=== PATIENT | male | born 1945 | race Caucasian/White ===

== ENCOUNTER → 2018-04-03 10:11 | Outpatient (CLI) | payer MEDICARE, SELFPAY ==
[2018-04-03 12:31] LABS: ALB/GLOB Ratio 1.1 RATIO (0.9-2.4); AST(SGOT) 27 U/L (15-37); Alanine Aminotransfer ALT/SGPT 47 U/L (16-61); Alkaline Phosphatase 78 U/L (45-117); Anion Gap 7 (5-15); BUN 11 mg/dL (7-18); BUN/Creat Ratio 9.8 RATIO (10-20); Calcium,Total 8.5 mg/dL (8.5-10.1); Chloride 107 mmol/L (98-107); Cholesterol 136 mg/dL (200); Creatinine, Serum 1.12 mg/dL (0.70-1.30); EST Glomerular Filtration Rate 69 mL/min (>60); Est Glom Filt Rate - Afr Amer 83 mL/min (>60); Globulin 3.6 g/dL (2.2-4.2); Glucose 99 mg/dL (74-106); High Density Lipoprotein 37 mg/dL; PSA,Total - Annual Screen 1.35 ng/mL (0.00-4.00); Potassium 4.5 mmol/L (3.5-5.1); Protein, Total 7.6 g/dL (6.4-8.2); Sodium Level 141 mmol/L (136-145); Triglycerides 154 mg/dL; Very Low Density Lipoprotein 31 mg/dL (5-40)
== END ==
PROVIDERS: Family Provider Family Medicine; PCP Family Medicine; Visit Provider Family Medicine
DX: R73.01 Impaired fasting glucose (principal); M17.10 Unilateral primary osteoarthritis, unspecified knee; I10 Essential (primary) hypertension; Z12.5 Encounter for screening for malignant neoplasm of prostate
CPT/HCPCS: 36415; 80053; 80061; 84153; G0103

== ENCOUNTER → 2019-04-06 | Outpatient (CLI) | payer MEDICARE, SELFPAY ==
[2019-04-06 10:41] LABS: ALB/GLOB Ratio 1.3 RATIO (0.9-2.4); AST(SGOT) 20 U/L (15-37); Alanine Aminotransfer ALT/SGPT 28 U/L (16-61); Alkaline Phosphatase 100 U/L (45-117); Anion Gap 7 (5-15); BUN 12 mg/dL (7-18); BUN/Creat Ratio 11.7 RATIO (10-20); Calcium,Total 8.7 mg/dL (8.5-10.1); Chloride 106 mmol/L (98-107); Cholesterol 133 mg/dL (200); Creatinine, Serum 1.03 mg/dL (0.70-1.30); EST Glomerular Filtration Rate 75 mL/min (>60); Est Glom Filt Rate - Afr Amer 91 mL/min (>60); GGTP 29 U/L (15-85); Globulin 3.1 g/dL (2.2-4.2); Glucose 94 mg/dL (74-106); High Density Lipoprotein 34 mg/dL; PSA,Total - Annual Screen 1.38 ng/mL (0.00-4.00); Potassium 3.7 mmol/L (3.5-5.1); Protein, Total 7.1 g/dL (6.4-8.2); Sodium Level 142 mmol/L (136-145); Triglycerides 132 mg/dL; Very Low Density Lipoprotein 26 mg/dL (5-40)
== END | disposition home or self-care (01) ==
PROVIDERS: Family Provider Family Medicine; PCP Family Medicine; Referring Provider Family Medicine; Visit Provider Family Medicine
DX: I10 Essential (primary) hypertension (principal); R79.89 Other specified abnormal findings of blood chemistry; N40.1 Benign prostatic hyperplasia with lower urinary tract symptoms; E78.00 Pure hypercholesterolemia, unspecified; Z12.5 Encounter for screening for malignant neoplasm of prostate
CPT/HCPCS: 36415; 80053; 80061; 82977; 84153; G0103

== ENCOUNTER → 2019-05-04 | Outpatient (CLI) | payer MEDICARE, SELFPAY ==
[2017-12-16 19:59] VITALS: BMI 34.2
== END | disposition home or self-care (01) ==
LOC: LABSPEC 14:07
PROVIDERS: Family Provider Family Medicine; PCP Family Medicine; Referring Provider Family Medicine; Visit Provider Family Medicine
DX: L72.9 Follicular cyst of the skin and subcutaneous tissue, unspecified (principal)
CPT/HCPCS: 87070; 87205

== ENCOUNTER → 2019-05-25 | Outpatient (CLI) | payer MEDICARE, SELFPAY ==
--- NOTE | 2019-05-25 11:20 | COLBX_PTH ---
PATIENT: STEVE JUAN III LOC: [facility] U#:[id number] AGE/SX: 74/M ROOM: RE05/25/[address]: Dr. Jean Lay MD : [id number] BED: DIS: 05/25/2019 SPEC #: [id number] RECD: 05/25/19 15:26 STATUS: JEFFREY RAMONITA #: [id number] AYANNA: 05/25/19 11:[address]: Jean Lay DEPT: SURGICAL PATHOLOGY RECD BY: Brooke Valdez ENTERED: 05/28/19 14:43 SP TYPE: COLON BX HEATHER DR: Dr. Omar Ace MD [facility] Tissues: A - Right colon B - Left colon Procedures: Surgery Specimen Level IV HEADER OPERATION: Colonoscopy with biopsies PRE-OP DIAGNOSIS: High risk screening / polyp TISSUE SUBMITTED: A - Right colon, rule out adenoma, B - Left colon, rule out adenoma MICROSCOPIC DIAGNOSIS A. Right colon, biopsy: Fragments of hyperplastic polyp. B. Left colon, biopsy: A fragment of colonic mucosa, no pathologic diagnosis. ALPESH:gi 05/29/19 MICROSCOPIC DESCRIPTION Slides are reviewed. GROSS DESCRIPTION A - Received in fixative is one container labeled with the patient's name and designated right colon. The specimen consists of multiple irregular fragments of light stone soft tissue that in aggregate measure 1 x 1 x 0.1 cm. The specimen is totally submitted in one cassette. B - Received in fixative is one container labeled with the patient's name and designated left colon. The specimen consists of one irregular fragment of light stone soft tissue that measures 0.3 x 0.1 x 0.1 cm. The specimen is totally submitted in one cassette. / ALPESH:gi 05/28/19 TC:1 CPT: 05573 x2
== END | disposition home or self-care (01) ==
LOC: LABSPEC 16:27
PROVIDERS: Family Provider Family Medicine; PCP Family Medicine; Referring Provider Internal Medicine Gastroenterology; Visit Provider Internal Medicine Gastroenterology
DX: Z12.11 Encounter for screening for malignant neoplasm of colon (principal); K63.5 Polyp of colon
CPT/HCPCS: 88305

== ENCOUNTER → 2019-09-11 11:59 | Outpatient (CLI) | payer MEDICARE, SELFPAY ==
[2017-12-16 19:59] VITALS: BMI 34.2
--- NOTE | 2019-09-11 12:02 | RAD_ITS ---
STUDY: X-RAY - ABDOMEN/PELVIS REASON FOR EXAM: Male, 74 years old. Constipation TECHNIQUE: AP supine and upright views of the abdomen and pelvis. COMPARISON: None. FINDINGS: Normal visualized lung bases. There is an unremarkable bowel gas pattern. There is no demonstrated free abdominal air. There are 3 radiopacities measuring up to 7 mm overlying the left renal silhouette consistent with nephrolithiasis. There is a small calcification overlying the spleen also which could be consistent with a calcified splenic granuloma. Normal soft tissue structures. There are diffuse degenerative changes of the visualized thoracolumbar spine. RAD/Abd Inc Decub and/or Erect IMPRESSION: Probable left nephrolithiasis. Calcified splenic granuloma. Diffuse degenerative changes of the visualized thoracolumbar spine. The bowel gas pattern is unremarkable. There is an average amount of colonic stool. Electronically Signed: Arya Leyva MD at 22:04 EDT , Service support ,
== END ==
PROVIDERS: Family Provider Family Medicine; PCP Family Medicine; Referring Provider Family Medicine; Visit Provider Family Medicine
DX: K59.00 Constipation, unspecified (principal)
CPT/HCPCS: 74019

== ENCOUNTER 2019-10-13 09:17 | Emergency (ER) | payer MEDICARE, SELFPAY ==
[2019-10-13 09:18] VITALS: BP 162/91; PULSE 88; RESP 18; TEMP 36.6; O2SAT 97; BMI 33.2
--- NOTE | 2019-10-13 09:27 | ED.DCSUM_ITS ---
History of Present Illness Chief Complaint: Back Informant: Patient, Significant Other Onset: Days - Approximately 8 days ago, October 05 Context: Sudden Onset Injury: - - Patient denies history of injury Timing: Continuous Quality: Dull, Aching Location: Lumbar Current Severity: Mild Maximum Severity: Moderate Worsened by: improves with: Movement, Bending, Lifting Relieved by: Nothing, - - Is taken Tylenol, ibuprofen and Aleve with no improvement. Associated Symptoms: Radiation to Left Leg - Complains of pain from the left greater trochanteric region to the superior aspect of the left patella, - - His bowel or bladder symptoms. He denies saddle paresthesia or anesthesia. He denies foot drop. He denies buckling of his knees going up or down the 2 steps at his residence. Narrative: Is a 74-year-old male with history of back problems since freshman year of high school. He presents with acute exacerbation of his chronic back pain that started 8 days ago. He has no neurologic symptoms. His pain is not in a radicular distribution. He denies fever, chills night sweats. There is no history of trauma. He has no GI symptoms. Prior similar symptoms: Yes Recent Illness/Hospitalization: Yes - Past Medical History (1) History of hypertension Status: Acute (2) History of hypercholesterolemia Status: Acute Past Medical History - Allergies and Home Meds Allergies/Adverse Reactions: Allergies Penicillins Allergy (Verified 10/13/19 09:22) Hives Primary Care Physician: Maurizio Ace MD [Primary Care Provider] - Prior records reviewed: Yes Surgical History: noncontributory Lives: Spouse/ Significant Other Smoking Status: Former smoker Alcohol: Rare Drugs: None Review of Systems General: Denies: Chills, Fever, Malaise, Subjective, Sweats, Weight loss, - ENT: Denies: Rhinorrhea, Sore throat Cardiovascular: Denies: Chest pain, Palpitations Respiratory: Denies: Dyspnea, Cough, Dyspnea on exertion Gastrointestinal: Denies: Abdominal pain, Nausea, Vomiting, Diarrhea, Constipation, Melena, Hematochezia, -, - Genitourinary: Denies: Dysuria, Hematuria, Frequency Musculoskeletal: Reports: Back pain, Extremity Pain. Denies: Myalgias, Arthralgias, Neck pain, Swelling Skin: Denies: Rash, Wounds Neurological: Denies: Weakness, Parasthesia, Numbness Hematologic: Denies: Easy bruising, Easy bleeding Physical Exam Vital Signs/Narrative: Vital Signs Temp Pulse Resp BP Pulse Ox 10/13/19 09:18 97.9 F 88 18 162/91 H 97 Inital Vital Signs reviewed: Yes General: Well nourished, Well developed Head: Normocephalic, Atraumatic Eyes: - - Enucleation of the right eye. No abnormality noted left eye. ENT: Moist mucous membranes, No rhinorrhea Neck: Supple, Nontender, No lymphadenopathy, No JVD Cardiovascular: Regular rate, Regular rhythm, No murmurs, Normal S1, Normal S2 Respiratory: No distress, CTA bilaterally, Chest nontender Abdomen: Soft, Nontender, Nondistended, Normal bowel sounds, No masses. Negative for: Hepatomegaly, Splenomegaly, Mass, Pulsatile mass Rectal: Deferred, - - Have normal perianal sensation. Extremeties: Nontender, No edema, Strong Pulses, Symmetric, - - DP and PT pulses are palpable bilaterally Skin: Normal color, No rash, No Trauma. Negative for: Cyanosis, Diaphoresis, Jaundice Neuro: Alert, Oriented, Normal Strength, Normal Sensation, Normal DTR, Normal Gait, Normal Reflexes - DTR 2+ patella and ankle and symmetric, - - 5 strength with plantar dorsiflexion of the foot. EHL is intact. Straight leg test is negative right and left. Femoral stretch test is negative. Reflexes: Right Patellar, Right Achilles, Left Patellar, Left Achilles. Negative for: Right Clonus, Right Babinski, Left Clonus, Left Babinski Psychological: Normal affect, Normal Mood Diagnostic/Tx/Re-eval - Medical Decision Making She has reproducible low back pain with a normal exam and unremarkable history. Since patient has taken acetaminophen, ibuprofen as well as Naprosyn with no relief after 8 days he was given a short course of opiate analgesia. ED Disposition - Plan for ED Patient: Disposition: Home or Assisted Living Diagnosis: Back pain without radiculopathy Instructions: BACK PAIN (Acute or Chronic) Prescriptions: Hydrocodone Bitart/Apap 5-325 [[place] 5MG-325MG] 1 tab PO Q6H PRN PRN 3 Days #10 tab PRN Reason: Pain Prescription Printed Referrals: Maurizio Ace MD [Primary Care Provider] - 3-5 Days if not improving
[2019-10-13] MEDS: HYDROcodone Bitartrate/Apap 5/325 Tablet PO (09:52)
[2019-10-13 09:55] VITALS: BP 147/75; PULSE 89; RESP 18
== END 2019-10-13 09:56 | disposition home or self-care (01) ==
PROVIDERS: Emergency Provider Emergency Medicine; Family Provider Family Medicine; PCP Family Medicine
DX: M54.5 Low back pain (principal); G89.29 Other chronic pain; I10 Essential (primary) hypertension; E78.00 Pure hypercholesterolemia, unspecified; Z79.82 Long term (current) use of aspirin; Z79.899 Other long term (current) drug therapy; Z87.891 Personal history of nicotine dependence
CPT/HCPCS: 99283

== ENCOUNTER 2019-10-16 06:31 | Observation (INO) | payer MEDICARE, SELFPAY ==
[2019-10-16] VITALS (7 sets, daily range): BP systolic 127–159; BP diastolic 69–89; PULSE 67–80; RESP 16–18; TEMP 36.7–37.3; O2SAT 96–99; BMI 30.7; BMI 30.8
--- NOTE | 2019-10-16 06:39 | CT_ITS ---
STUDY: CT ABDOMEN AND PELVIS WITHOUT CONTRAST REASON FOR EXAM: Male, 74 years old. Pain in the back, as well as the left leg and hip. No known injury. Hypertension. RADIATION DOSAGE (If Supplied By Facility): CTDIvol = ( 13.46 ) mGy, DLP = ( 726.55 ) mGycm TECHNIQUE: Transaxial images were obtained from the dome of the diaphragm to the symphysis pubis without oral contrast, and without intravenous contrast. Sagittal and coronal images were reconstructed. Individualized dose optimization techniques were used for this CT. COMPARISON: X-ray abdominal series 09/11/2019. FINDINGS: There is mild atelectasis and/or fibrosis in the visualized lung bases. The visualized portions of the heart are within normal limits. There are coronary artery calcifications. Normal liver. Normal gallbladder and extrahepatic biliary system. There is a calcified granuloma in the spleen.. Normal pancreas. Normal bilateral adrenal glands. There is a small right renal cyst. There is no demonstrated right urinary calculus or hydronephrosis. There is a small left renal cyst. There are 1.4 cm and 9 mm nonobstructive left lower pole renal calculi. There is no demonstrated ureteral calculus or hydronephrosis. Normal visualized stomach. There is a 3 cm diverticulum of the duodenal sweep. Otherwise normal small intestine. There are multiple colonic diverticula consistent with diverticulosis. The appendix is visualized on axial images 88-99 and it appears normal. There is mild atherosclerotic calcification of the abdominal aorta, without a demonstrated aneurysm. Normal inferior vena cava. Normal retroperitoneum. Normal urinary bladder. Limited views of the scrotum demonstrated a moderately large left hydrocele. There is a small umbilical hernia which contains fat but no bowel. There are diffuse degenerative changes of the visualized lumbar spine. There is mild to moderate degenerative arthrosis of the hips bilaterally. CT/Abdomen/Pelvis without Cont IMPRESSION: Colonic diverticulosis, without evidence for acute diverticulitis. Nonobstructive left renal calculi. Small bilateral renal cysts. No demonstrated ureteral calculi or hydronephrosis. Atherosclerosis. Incidental finding of a moderately large left hydrocele. No evidence for acute pathology. Degenerative changes in the lumbar spine and bilateral hips. No evidence for appendicitis. No evidence for bowel obstruction or ileus. Electronically Signed: Parish Hoyos MD at 7:34 EST , Service support ,
--- NOTE | 2019-10-16 06:40 | ED.VIS.GEN ---
History of Present Illness Informant: Patient Onset: Days Context: Gradual Onset Timing: Intermittent Current Severity: Moderate Maximum Severity: Moderate Narrative: The patient is a 74-year-old male with history of hypertension and hyperlipidemia who presents to the emergency department with left low back pain that radiates to his left leg. The patient was seen here 3 days ago. At that time, he was diagnosed with musculoskeletal back pain. He was given a prescription for Percocet. He states he is been taking it with no improvement. He said the point that his pain is rather significant and he is having a difficult time walking. He states that he struggled with constipation, but has for a while. He denies any numbness in his groin. He denies any fevers or chills. He denies any new trauma. He is never had surgery on his back in the past. Prior similar symptoms: Yes Recent Illness/Hospitalization: No <Tru Poon - Last Filed: 10/16/19 06:40> <Zen Stewart - Last Filed: 10/16/19 10:41> Chief Complaint: Back Past Medical History Prior records reviewed: Yes Past Medical History: - - Hypertension, hyperlipidemia Surgical History: noncontributory Smoking Status: Former smoker <Tru Poon - Last Filed: 10/16/19 06:40> <Zen Stewart - Last Filed: 10/16/19 10:41> - Allergies and Home Meds Allergies/Adverse Reactions: Allergies Penicillins Allergy (Verified 10/13/19 09:22) Hives Primary Care Physician: Maurizio Ace MD [Primary Care Provider] - Review of Systems General: Denies: Chills, Fever, Sweats Eyes: Denies: Visual changes - bilaterally, Diplopia ENT: Denies: Rhinorrhea, Sore throat Cardiovascular: Denies: Chest pain, Palpitations Respiratory: Denies: Dyspnea, Cough, Dyspnea on exertion Gastrointestinal: Denies: Abdominal pain, Nausea, Vomiting, Diarrhea, Melena, Hematochezia Genitourinary: Denies: Dysuria, Hematuria, Frequency Musculoskeletal: Reports: Back pain. Denies: Extremity Pain Skin: Denies: Rash, Wounds Neurological: Denies: Headache, Weakness, Numbness <Tru Poon - Last Filed: 10/16/19 06:40> Physical Exam Vital Signs/Narrative: Vital Signs Temp Pulse Resp BP Pulse Ox 10/16/19 06:32 98.1 F 73 18 159/89 H 97 Inital Vital Signs reviewed: Yes General: Well nourished, Well developed, No Acute Distress Head: Normocephalic, Atraumatic Eyes: Perrl, EOMI ENT: Moist mucous membranes, No rhinorrhea Neck: Supple, Nontender Cardiovascular: Regular rate, Regular rhythm, No murmurs Respiratory: No distress, CTA bilaterally, Chest nontender Abdomen: Soft, Nontender, Nondistended, Normal bowel sounds Back: Nontender, Normal Inspection Extremities: Nontender, No edema Skin: Normal color, No rash Neurological: Alert, Oriented x3, Cranial nerves II-XII grossly intact, Normal Strength, Normal Sensation, - - 2+ symmetric lower extremity pulses. Normal reflexes. Straight leg positive for pain and paresthesia. Psychological: Normal affect, Normal Mood <Tru Poon - Last Filed: 10/16/19 06:40> Vital Signs/Narrative: Vital Signs Temp Pulse Resp BP Pulse Ox 10/16/19 06:32 98.1 F 73 18 159/89 H 97 <Zen Stewart - Last Filed: 10/16/19 10:41> Diagnostic/Tx/Re-eval - Medical Decision Making The patient symptoms do seem most consistent with sciatica. He has no red flag symptoms. My concern is that given his age and medical history, I do want to rule out aortic aneurysm. The patient does have a difficult time walking around because of his pain. He is been on oral analgesics. Patient will undergo metabolic work-up, imaging, and be reevaluated. Impression 1. Acute left back pain with radiculopathy <Tru Poon - Last Filed: 10/16/19 06:40> - Medical Decision Making Seen by me. I evaluated him, most of his pain is paraspinal. He has no red flags on history and normal exam by me, he has negative straight leg test, he has no tenderness in his groin or hip region. He has equal reflexes bilaterally normal plantar flexion and dorsiflexion of great toes. However when I try to ambulate him he cannot, I had a long discussion with the patient as well as the at this time they would like to see if there is the opportunity for him to go to a rehab facility. I will consult social work for this. Unfortunately patient did not have prior authorization for insurance therefore I will admit per social work recommendation for insurance authorization. <Zen Stewart - Last Filed: 10/16/19 10:41> ED Disposition <Tru Poon - Last Filed: 10/16/19 06:40> <Zen Stewart - Last Filed: 10/16/19 10:41> - Plan for ED Patient: Disposition: Acute Care [facility] Diagnosis: Back pain
[2019-10-16] MEDS: Ondansetron 4 MG/2 ML Vial IV (06:52)
[2019-10-16] MEDS: Morphine 4 MG/ML Syringe IV (06:52)
[2019-10-16 07:08] LABS: Absolute Lymphocyte Count 1.11 X10^3/uL (0.83-4.51); Absolute Neutrophil Count 7.8 X10^3/uL (2.0-7.7); Basophil# 0.02 X10^3/uL; Basophil% 0.2 % (0-1); Eosinophil# 0.15 X10^3/uL; Eosinophils% 1.5 % (0-5); Hematocrit 46.1 % (40-54); Hemoglobin 15.5 g/dL (13.0-16.5); Lymphocyte # 1.11 X10^3/ul (4.0); Lymphocyte % 11.2 % (19-41); Mean Corp Hgb Conc 33.6 g/dL (32-36); Mean Corpuscular Hgb 30.3 pg (27.0-32.0); Mean Corpuscular Volume 90.2 fL (80-94); Mean Platelet Vol. 9.7 fl (6.2-12.0); Monocyte# 0.79 X10^3/uL; Monocyte% 7.9 % (0-10); NRBC Flagged by Analyzer 0 % (0-5); Neutrophil # 7.84 X10^3/uL (2.7-7.7); Neutrophil % 78.8 % (47-70); Platelet Count 264 K/mm3 (150-450); Red Blood Count 5.11 M/mm3 (4.6-6.2)
[2019-10-16 07:16] LABS: Anion Gap 7 (5-15); BUN 15 mg/dL (7-18); BUN/Creat Ratio 13.2 RATIO (10-20); Calcium,Total 9.2 mg/dL (8.5-10.1); Chloride 107 mmol/L (98-107); Creatinine, Serum 1.14 mg/dL (0.70-1.30); EST Glomerular Filtration Rate 67 mL/min (>60); Est Glom Filt Rate - Afr Amer 81 mL/min (>60); Estimated Creatinine Clearance 62.38 ml/min; Glucose 95 mg/dL (74-106); Potassium 3.9 mmol/L (3.5-5.1); Sodium Level 142 mmol/L (136-145)
--- NOTE | 2019-10-16 10:30 | CM.ED ---
SOCIAL WORK INFORMANT: DR. RUIZ REASON FOR REFERRAL: D/C PLANNING-REFERRAL TO TCU LIVING SITUATION: PATIENT LIVES HOME WITH , ORQUIDEA IN A SINGLE STORY HOME. DME: CANE, WALKER PCP: DR. [facility] HX: PATIENT REPORTS DEPRESSION D/T AGING PROCESS. PATIENT STATES HAS BEEN FEELING WEAKER AND UNABLE TO AMBULATE D/T PAIN. 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 SUBSTANCE ABUSE HX: PATIENT STATES I USED TO BE AN ALCOHOLIC. PATIENT REPORTS HAS ABSTAINED FROM ALCOHOL FOR 4-5 YEARS. ASSESSMENT: MET WITH PATIENT AND IN ROOM. INTRODUCED ROLE AND REASON FOR REFERRAL. AND PATIENT STATES PATIENT IS NEEDING REHAB. PATIENT HAS BEEN UNABLE TO GET AROUND SAFELY FOR THE LAST WEEK AND A HALF. DISCUSSED OPTIONS. REQUESTING REFERRAL TO TCU. DISCUSSED REFERRAL PROCESS AND NEED FOR PRE-CERT. AND PATIENT VERBALIZE UNDERSTANDING. UPDATED DR. RUIZ AND NURSE, JAQUELINE. CALL TO TCU REFERRAL LINE, SPOKE WITH SALINA WHO REPORTS WILL FOLLOW UP WITH THIS WORKER. PLAN: ADMIT, TCU REFERRAL COMPLETED. Lui CHAVES, STAINED GLASS ARTIST, CREDIT CONTROL CLERK.
--- NOTE | 2019-10-16 10:35 | CM.ED ---
SOCIAL WORK RECEIVED CALL BACK FROM [facility] WITH U WHO REPORTS SPOKE WITH SHEMAR. [facility] WILL NEED TO OBTAIN PRECERT. PATIENT ON LIST FOR TCU. Lui CHAVES, SUPERVISOR NEWSPAPER DELIVERIES, CONSULTING MANAGER.
--- NOTE | 2019-10-16 10:37 | NURSING ---
DR SIMON RUIZ
--- NOTE | 2019-10-16 10:45 | NURSING ---
MED SURG OBS BACK PAIN SIMON
--- NOTE | 2019-10-16 11:00 | PCM.HP.STD ---
History of Present Illness Date of Admission: 10/16/19 Chief Complaint: Back pain The patient is a 74 year old M with PMH as below who presents with left lower back pain that radiates down his leg. He was evaluated in the ER couple times this week and all the exams have been with left-sided paraspinal pain without any red flag symptoms. He endorses the fact that he does not have any loss of bowel or bladder function. And he has not had any recent trauma, his said that he did try to take the garbage out in December and slipped and fell on his back and that is when he started having back pain. He has had 4 episodes of back pain this year and this 1 seems to have been the worst one. He has not followed up with any outpatient physician for this and has not done any rehab either. Per the he has been slowly doing less and less at home because of his back pain and he does not ambulate all that much anymore. CT scan of his abdomen and pelvis was negative for any intra-abdominal pathology and did not show any significant spinal pathology. He denies any numbness or tingling in his left lower extremity. Past Medical History Allergies Penicillins Allergy (Verified 10/13/19 09:22) Hives Home Medications: Ambulatory Orders Medication Instructions Recorded Amlodipine [Norvasc] 5 mg PO DAILY 12/16/17 Atorvastatin Calcium 20 mg PO DAILY 12/16/17 Metoprolol Succinate [Toprol Xl] 100 mg PO DAILY 12/16/17 Aspirin [Aspir 81] 81 mg PO DAILY 10/13/19 Hydrocodone Bitart/Apap 5-325 1 tab PO Q6H PRN PRN 3 Days #10 tab 10/13/19 [[place] 5MG-325MG] Vit A/Vit C/Vit E/Zinc/Copper 1 ea PO DAILY 10/13/19 [Preservision Areds Softgel] Surgical History: - - Carotid endarterectomy, trach Smoking Status: Former smoker Tobacco Use: Cigarettes Alcohol: None Drugs: None - *Family History Maternal History Items: Cancer - Brain tumor Paternal History Items: - - Does not know his biological father Review of Systems Constitutional: Denies: Chills, Fever, Weight Change HEENT: Denies: Head Aches, Sinus Congestion, Sinus Drainage Cardiovascular: Denies: Chest Pain, Palpitations Respiratory: Denies: Cough, Shortness of breath at rest, Sputum production Gastrointestinal: Denies: Abdominal Pain, Constipation, Diarrhea, Nausea, Vomiting Genitourinary: Denies: Dysuria, Frequency, Retention Musculoskeletal: Reports: Back Pain - Left side, Leg Pain - Left leg. Denies: Joint Pain, Joint Tenderness Skin: Denies: Rash, Wounds Neurological: Denies: Numbness, Tingling, Focal weakness Psychiatric: Denies: Anxiety, Depression Hematologic/ Lymphatic: Denies: Easy Bruising, Easy Bleeding VTE Information - Inpt Only VTE Present on Admission: No Patient Problems: Active and Suspected Problems Back pain (Acute) - Physical Exam Vitals/I&O's: Vital Signs Temp Pulse Resp BP Pulse Ox 98.1 F 67 18 155/71 H 96 10/16/19 06:32 10/16/19 10:47 10/16/19 10:47 10/16/19 10:47 10/16/19 10:47 Oxygen Delivery Method Room Air Weight: 220 lb 10.923 oz Body Mass Index (BMI) 30.7 Intake and Output for Last 24 Hours 10/14/19 10/15/19 10/16/19 23:59 23:59 23:59 Intake Total 500 / 500 Balance 500 / 500 General: Alert, Oriented x3, Cooperative, No apparent distress HEENT: Atraumatic, - - 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 Oral: Moist Mucosa Neck: Supple, No JVD Lungs: Clear to auscultation, Normal air movement, No rhonchi, No wheeze, No rales, Diminished Cardiovascular: Regular rate, Regular Rhythm, Normal S1, Normal S2, No murmurs Abdomen: Soft, Non Tender, Non-Distended, No Hepato-splenomegaly Extremities: No edema, Capillary Refill Less than 3 Seconds Skin: No rashes, No breakdown Musculoskeletal: - - Left-sided back pain to palpation of his left paraspinal muscle, no significant pain with left straight leg raise Neurological: Deep Tendon Reflexes 2+/4 and Symmetrical, Neuro grossly intact, Motor Exam 5/5 strength throughout, Sensory exam intact to light touch and pain Psych/Mental Status: Normal Affect, Appropriate Laboratory Results 10/16/19 06:50: WBC 10.0, RBC 5.11, Hgb 15.5, Hct 46.1, MCV 90.2, MCH 30.3, MCHC 33.6, RDW Std Deviation 39.0, RDW Coeff of Tomasa 12.0, Plt Count 264, MPV 9.7, Immature Gran % (Auto) 0.400, Neut % (Auto) 78.8 H, Lymph % (Auto) 11.2 L, Jones % (Auto) 7.9, Eos % (Auto) 1.5, Baso % (Auto) 0.2, Absolute Neuts (auto) 7.8 H, Absolute Lymphs (auto) 1.11, Nucleated RBC % 0 10/16/19 06:50: Sodium 142, Potassium 3.9, Chloride 107, Carbon Dioxide 28.0, Anion Gap 7, BUN 15, Creatinine 1.14, Estim Creat Clear Calc 62.38, Est GFR (MDRD) Af Amer 81, Est GFR (MDRD) Non-Af 67, BUN/Creatinine Ratio 13.2, Glucose 95, Calcium 9.2 Assessment/Plan All Active Problems History of hypertension (Acute) History of hypercholesterolemia (Acute) Back pain (Acute) 1. Left lower back pain -No clinical indications for spinal pathology at this time -PT/OT -Consult to case management for rehab placement -Per the he has not been ambulatory and has not been getting up for about the last 2 weeks 2. HTN/HLD -Blood pressures been in the 150s -Continue with his home metoprolol, Norvasc, Lipitor, aspirin 3. Macular degeneration -According to his this is been worsening over the last several years and his left eye -Continue with his multivitamin DVT: Lovenox Code Visit OBSV E&M: 03997 Initial observation care L2
--- NOTE | 2019-10-16 11:19 | CM.ED ---
SOCIAL WORK AWAITING BED-[id number]. CALL TO ABY WALLER TO UPDATE ON PATIENT. SW TO FOLLOW. Lui CHAVES, KID CLUB ATTENDANT, DIRECTOR MEDIA.
--- NOTE | 2019-10-16 13:07 | CASEMGMT ---
Addendum entered by Lisa Bush 10/16/19 16:13: SW called PT/OT again and asked if they can evaluate pt today so pre-cert can be submitted. PT/OT state they will see pt today. SRIDHAR placed a call to Haylee with TCU and updated her of this. Haylee states she will submit for pre-cert once PT/OT works with pt. Plan: TCU pending pre-cert Addendum entered by Lisa Bush 10/16/19 13:51: SRIDHAR attempted to call PT/OT to request PT/OT evaluations be completed today but no answer. SW will try again as time allows. Original Note: Social Work Note ED SRIDHAR called this worker and updated this worker that referral has been to TCU. Pt will need pre-cert. Plan: TCU pending acceptance and pre-cert Lisa Bush SAFETY AND HEALTH MANAGER, REMOTE RECRUITER
[2019-10-16] MEDS: Acetaminophen 325 MG Tablet 650 MG PO ×2 (14:08→22:41)
[2019-10-17 04:37] VITALS: BP 116/56; PULSE 74; RESP 18; TEMP 37; O2SAT 95
[2019-10-17] MEDS: Acetaminophen 325 MG Tablet 650 MG PO ×3 (04:38→18:35)
[2019-10-17 08:49] VITALS: BP 150/85; PULSE 90; RESP 20; TEMP 36.7; O2SAT 95
--- NOTE | 2019-10-17 09:03 | NURSING ---
Poor appetite at this time d/t to just waking up and now working with therapy- requesting to take AM meds after eating- same to be completed.
[2019-10-17] MEDS: amLODIPine 5 MG Tablet PO (09:29)
[2019-10-17] MEDS: Atorvastatin Calcium 20 MG Tablet PO (09:29)
[2019-10-17 09:30] VITALS: PULSE 90
[2019-10-17] MEDS: Aspirin E.C. 81 MG Tablet PO (09:30)
[2019-10-17] MEDS: Metoprolol(XL)Succ 100 MG Tablet PO (09:30)
--- NOTE | 2019-10-17 10:31 | CASEMGMT ---
Addendum entered by Lisa Bush 10/17/19 14:49: Green sheet on chart in the event pre-cert is obtained. Original Note: Social Work Note SW spoke with Haylee in TCU who states she submitted for pre-cert first thing this morning. SW in to speak with pt. SW introduced self and role at [facility]. Pt is alert and orientated x3. SW updated pt that pt has been accepted to TCU pending pre-cert. Pt states understanding, still agreeable to TCU. Plan: TCU pending pre-cert Lisa Bush GEOCHEMIST, REAL ESTATE BROKER ASSOCIATE
--- NOTE | 2019-10-17 14:21 | CCN.REFER ---
Intro role of CM to patient and HURST form explained re: Observation status for treatment of back pain. Explained hospitalization will be paid per? insurance policy for Outpatient billing?and condition will continue to be evaluated for Inpt necessity. Also let pt know that [facility] sends paper in the billing packet with their phone number if questions arise. Discussed Pharmacy section of HURST form and self administered medication guideline.? Pt verbalizes understanding and does not have further questions. Form signed and placed in chart, copy to pt. EMERSON EDWARDS BSN CM
[2019-10-17 14:40] VITALS: BP 117/70; PULSE 74; RESP 16; TEMP 36.9; O2SAT 99
--- NOTE | 2019-10-17 15:30 | PN_ITS ---
Patient Problems: Active and Suspected Problems Back pain (Acute) Subjective: About the same, still with pain though I did have to wake him up and he states that he slept through the night Vitals/I&O's: Vital Signs Temp Pulse Resp BP Pulse Ox 98.5 F 74 16 117/70 99 10/17/19 14:40 10/17/19 14:40 10/17/19 14:40 10/17/19 14:40 10/17/19 14:40 Oxygen Delivery Method Room Air Weight: 219 lb 12.814 oz Body Mass Index (BMI) 30.7 Intake and Output for Last 24 Hours 10/15/19 10/16/19 10/17/19 23:59 23:59 23:59 Intake Total 750 / 750 700 / 700 Balance 750 / 750 700 / 700 General: Alert, Oriented x3, Cooperative, No apparent distress HEENT: Atraumatic, - - 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 Oral: Moist Mucosa Neck: Supple, No JVD Lungs: Clear to auscultation, Normal air movement, No rhonchi, No wheeze, No rales, Diminished Cardiovascular: Regular rate, Regular Rhythm, Normal S1, Normal S2, No murmurs Abdomen: Soft, Non Tender, Non-Distended, No Hepato-splenomegaly Extremities: No edema, Capillary Refill Less than 3 Seconds Skin: No rashes, No breakdown Musculoskeletal: - - Left-sided back pain to palpation of his left paraspinal muscle, no significant pain with left straight leg raise Neurological: Deep Tendon Reflexes 2+/4 and Symmetrical, Neuro grossly intact, Motor Exam 5/5 strength throughout, Sensory exam intact to light touch and pain Psych/Mental Status: Normal Affect, Appropriate Current Medications Acetaminophen (Tylenol) 650 mg PO Q6H PRN PRN PRN Reason: Pain Score 1-08/30 Last Admin: 10/17/19 11:22 Dose: 650 mg Documented by: Amlodipine Besylate (Norvasc) 5 mg PO DAILY [facility] Last Admin: 10/17/19 09:29 Dose: 5 mg Documented by: Aspirin (Ecotrin) 81 mg PO DAILY@0800 [facility] Last Admin: 10/17/19 09:30 Dose: 81 mg Documented by: Atorvastatin Calcium (Lipitor) 20 mg PO DAILY [facility] Last Admin: 10/17/19 09:29 Dose: 20 mg Documented by: Enoxaparin Sodium (Lovenox) 40 mg SC DAILY [facility] Last Admin: 10/17/19 11:23 Dose: Not Given Documented by: Sodium Chloride () 250 mls @ 15 mls/hr IV .[id number] PRN PRN Reason: Saline Flush Metoprolol Succinate (Toprol Xl (Beta Alex)) 100 mg PO DAILY [facility] Last Admin: 10/17/19 09:30 Dose: 100 mg Documented by: Sodium Chloride () 10 - 40 ml IV UD PRN PRN Reason: SALINE FLUSH STROKE Vital Signs/Narrative: Vital Signs Temp Pulse Resp BP Pulse Ox 10/17/19 14:40 98.5 F 74 16 117/70 99 Medical Necessity - Tobacco Use Smoking Status: Former smoker Tobacco Use: Cigarettes, Chew Assessment/Plan All Active Problems History of hypertension (Acute) History of hypercholesterolemia (Acute) Back pain (Acute) 1. Left lower back pain -No clinical indications for spinal pathology at this time -PT/OT -Consult to case management for rehab placement -Per the he has not been ambulatory and has not been getting up for about the last 2 weeks 2. HTN/HLD -Blood pressures been in the 150s -Continue with his home metoprolol, Norvasc, Lipitor, aspirin 3. Macular degeneration -According to his this is been worsening over the last several years and his left eye -Continue with his multivitamin DVT: Lovenox Code Visit OBSV E&M: 89734 Subsequent observation care L2
[2019-10-17 20:29] VITALS: BP 112/64; PULSE 71; RESP 16; TEMP 36.8; O2SAT 100
[2019-10-18 02:11] VITALS: BP 136/73; PULSE 65; RESP 18; TEMP 36.5; O2SAT 96
[2019-10-18] MEDS: Acetaminophen 325 MG Tablet 650 MG PO ×3 (02:23→19:32)
[2019-10-18 07:45] VITALS: BP 112/67; PULSE 73; RESP 20; TEMP 36.6; O2SAT 100
--- NOTE | 2019-10-18 08:27 | PCM.PN.HOSP ---
Patient Problems: Active and Suspected Problems Back pain (Acute) Reason for Visit: Follow-up low back pain Subjective: Patient is a 74-year-old gentleman admitted with low back pain imaging studies demonstrated degenerative changes in the lumbar spine as well as bilateral hips admitted to regular nursing floor for pain management with plans for patient to be transferred to fdc facility pending insurance approval Objective: GENERAL: cooperative HEENT: Atraumatic; EYES; Anicteric, Normal Conjunctiva NECK; supple, normal thyroid, RESPIRATORY: Diminished to auscultation CARDIOVASCULAR: Regular S1 S2, GI: soft, normoactive bowel sounds, : No Renal angle tenderness; EXTREMITIES: No edema, no clubbing, MUSCULOSKELETAL: no muscle waisting NEURO: Awake; no lateralizing signs. SKIN: No Rash PSYCH; Flat affect Vitals/I&O's: Vital Signs Temp Pulse Resp BP Pulse Ox 97.9 F 73 20 H 112/67 100 10/18/19 07:45 10/18/19 07:45 10/18/19 07:45 10/18/19 07:45 10/18/19 07:45 Oxygen Delivery Method Room Air Weight: 99.7 kg Body Mass Index (BMI) 30.7 Intake and Output for Last 24 Hours 10/16/19 10/17/19 10/18/19 23:59 23:59 23:59 Intake Total 750 / 750 1500 / 2000 800 / 800 Balance 750 / 750 1500 / 2000 800 / 800 Current Medications Acetaminophen (Tylenol) 650 mg PO Q6H PRN PRN PRN Reason: Pain Score 1-10/10 Last Admin: 10/18/19 02:23 Dose: 650 mg Documented by: Amlodipine Besylate (Norvasc) 5 mg PO DAILY [facility] Last Admin: 10/17/19 09:29 Dose: 5 mg Documented by: Aspirin (Ecotrin) 81 mg PO DAILY@0800 [facility] Last Admin: 10/17/19 09:30 Dose: 81 mg Documented by: Atorvastatin Calcium (Lipitor) 20 mg PO DAILY [facility] Last Admin: 10/17/19 09:29 Dose: 20 mg Documented by: Enoxaparin Sodium (Lovenox) 40 mg SC DAILY [facility] Last Admin: 10/17/19 11:23 Dose: Not Given Documented by: Sodium Chloride () 250 mls @ 15 mls/hr IV .[id number] PRN PRN Reason: Saline Flush Metoprolol Succinate (Toprol Xl (Beta Alex)) 100 mg PO DAILY [facility] Last Admin: 10/17/19 09:30 Dose: 100 mg Documented by: Sodium Chloride () 10 - 40 ml IV UD PRN PRN Reason: SALINE FLUSH STROKE Vital Signs/Narrative: Vital Signs Temp Pulse Resp BP Pulse Ox 10/18/19 07:45 97.9 F 73 20 H 112/67 100 Medical Necessity - Tobacco Use Smoking Status: Former smoker Tobacco Use: Cigarettes, Chew Assessment/Plan All Active Problems History of hypertension (Acute) History of hypercholesterolemia (Acute) Back pain (Acute) Patient is a 74-year-old gentleman admitted with low back pain imaging studies demonstrated degenerative changes in the lumbar spine as well as bilateral hips admitted to regular nursing floor for pain management with plans for patient to be transferred to fdc facility pending insurance approval 1. Acute low back pain ?Secondary to degenerative joint disease admitted to regular nursing floor for symptomatic management, PT OT and consult to social media content specialist/case management 2. Hypertension ~ blood pressure controlled, home medications continued with dose adjustment as needed 3. Dyslipidemia ~patient is on statin therapy, continued at home dose 4. DVT prophylaxis ~ on enoxaparin Advance planning; did discuss with the patient regarding advanced directives as well as CODE STATUS. Did explain the various scenarios involved ( FULL CODE, DNR CCA, DNR CCA with no intubation, and DNR CC and what each meant) patient elected to remain full code. Order was placed. Time spent on discussion 18 minutes. Active Medications Acetaminophen (Tylenol) 650 mg PO Q6H PRN PRN PRN Reason: Pain Score 1-10/10 Last Admin: 10/18/19 02:23 Dose: 650 mg Documented by: Amlodipine Besylate (Norvasc) 5 mg PO DAILY [facility] Last Admin: 10/17/19 09:29 Dose: 5 mg Documented by: Aspirin (Ecotrin) 81 mg PO DAILY@0800 [facility] Last Admin: 10/17/19 09:30 Dose: 81 mg Documented by: Atorvastatin Calcium (Lipitor) 20 mg PO DAILY [facility] Last Admin: 10/17/19 09:29 Dose: 20 mg Documented by: Enoxaparin Sodium (Lovenox) 40 mg SC DAILY [facility] Last Admin: 10/17/19 11:23 Dose: Not Given Documented by: Sodium Chloride () 250 mls @ 15 mls/hr IV .[id number] PRN PRN Reason: Saline Flush Metoprolol Succinate (Toprol Xl (Beta Alex)) 100 mg PO DAILY [facility] Last Admin: 10/17/19 09:30 Dose: 100 mg Documented by: Sodium Chloride () 10 - 40 ml IV UD PRN PRN Reason: SALINE FLUSH Clinical Impression(s) from Imaging Studies Abdomen/Pelvis CT 10/16/19 06:39 IMPRESSION: Colonic diverticulosis, without evidence for acute diverticulitis. Nonobstructive left renal calculi. Small bilateral renal cysts. No demonstrated ureteral calculi or hydronephrosis. Atherosclerosis. Incidental finding of a moderately large left hydrocele. No evidence for acute pathology. Degenerative changes in the lumbar spine and bilateral hips. No evidence for appendicitis. No evidence for bowel obstruction or ileus. Electronically Signed: Parish Hoyos MD at 7:34 EST , Service support , Code Visit OBSV E&M: 13682 Initial observation care L2 Procedures: 86461 Advncd Care Plan 30 Min
[2019-10-18 11:40] VITALS: BP 112/67; PULSE 73
[2019-10-18] MEDS: Metoprolol(XL)Succ 100 MG Tablet PO (11:40)
[2019-10-18] MEDS: Enoxaparin 40 MG/0.4 ML Syringe SC (11:40)
[2019-10-18] MEDS: Atorvastatin Calcium 20 MG Tablet PO (11:40)
[2019-10-18] MEDS: amLODIPine 5 MG Tablet PO (11:40)
[2019-10-18] MEDS: Aspirin E.C. 81 MG Tablet PO (11:40)
[2019-10-18 14:00] VITALS: BP 141/65; PULSE 72; RESP 18; TEMP 37; O2SAT 98
[2019-10-18 14:26] LABS: Bacteria 0 SEEN /hpf (None Seen); Mucous, Urine 0 SEEN /hpf (<or=2+)
[2019-10-18 14:39] LABS: Color, Urine Yellow (Yellow); Glucose, Dipstick Normal (Normal); Ketone-Dipstick Negative (Negative); Leukocyte Esterase-Dipstick Negative /ul (Negative); Nitrite-Dipstick Negative (Negative); Occult Blood-Urine Negative /ul (Negative); Protein-Dipstick Negative (Negative); Specific Gravity, Urine 1.015 (1.002-1.030); Urine Bilirubin Dipstick Negative (Negative); Urine Clarity Clear (Clear); Urine Urobilinogen Normal (Normal); Urine pH 6.5 (5.0 - 8.0)
[2019-10-18 14:54] LABS: Red Blood Cells-Urine 0-5 SEEN /hpf (0-5); Squamous Epithelial Cells - UA 0-5 SEEN /hpf (0-5); White Blood Cells 0-5 SEEN /hpf (0-5)
[2019-10-18 20:50] VITALS: BP 147/82; PULSE 70; RESP 18; TEMP 36.6; O2SAT 100
[2019-10-19] MEDS: Acetaminophen 325 MG Tablet 650 MG PO ×2 (01:40→07:49)
[2019-10-19 03:18] VITALS: BP 108/47; PULSE 61; RESP 18; TEMP 36.8; O2SAT 97
[2019-10-19 06:02] LABS: Absolute Lymphocyte Count 1.78 X10^3/uL (0.83-4.51); Basophil# 0.03 X10^3/uL; Basophil% 0.5 % (0-1); Eosinophils% 1.5 % (0-5); Hematocrit 40.8 % (40-54); Hemoglobin 13.9 g/dL (13.0-16.5); Lymphocyte # 1.78 X10^3/ul (4.0); Mean Corp Hgb Conc 34.1 g/dL (32-36); Mean Corpuscular Hgb 30.9 pg (27.0-32.0); Mean Corpuscular Volume 90.7 fL (80-94); Mean Platelet Vol. 9.8 fl (6.2-12.0); Monocyte# 0.63 X10^3/uL; Monocyte% 9.5 % (0-10); NRBC Flagged by Analyzer 0 % (0-5); Neutrophil # 4.04 X10^3/uL (2.7-7.7); Neutrophil % 61.2 % (47-70); Platelet Count 213 K/mm3 (150-450); RBC Distribution Width CV 12.2 % (11.6-14.6); RBC Distribution Width SD 40.2 fl (35.1-43.9); White Blood Count 6.6 K/mm3 (4.4-11.0)
[2019-10-19 06:19] LABS: Anion Gap 7 (5-15); BUN 11 mg/dL (7-18); Calcium,Total 8.6 mg/dL (8.5-10.1); Chloride 110 mmol/L (98-107); Creatinine, Serum 0.85 mg/dL (0.70-1.30); EST Glomerular Filtration Rate 94 mL/min (>60); Est Glom Filt Rate - Afr Amer 114 mL/min (>60); Estimated Creatinine Clearance 83.67 ml/min; Glucose 92 mg/dL (74-106); Potassium 3.7 mmol/L (3.5-5.1); Sodium Level 145 mmol/L (136-145)
--- NOTE | 2019-10-19 07:23 | PN_ITS ---
Patient Problems: Active and Suspected Problems Back pain (Acute) Reason for Visit: Follow-up low back pain Subjective: Patient seen still complains of low back pain. Awaiting insurance precertification prior to transfer to residential facility Objective: GENERAL: cooperative HEENT: Atraumatic; EYES; Anicteric, Normal Conjunctiva NECK; supple, normal thyroid, RESPIRATORY: Diminished to auscultation CARDIOVASCULAR: Regular S1 S2, GI: soft, normoactive bowel sounds, : No Renal angle tenderness; EXTREMITIES: No edema, no clubbing, MUSCULOSKELETAL: no muscle waisting NEURO: Awake; no lateralizing signs. SKIN: No Rash PSYCH; Flat affect Vitals/I&O's: Vital Signs Temp Pulse Resp BP Pulse Ox 98.3 F 61 18 108/47 L 97 10/19/19 03:18 10/19/19 03:18 10/19/19 03:18 10/19/19 03:18 10/19/19 03:18 Oxygen Delivery Method Room Air Weight: 99.7 kg Body Mass Index (BMI) 30.7 Intake and Output for Last 24 Hours 10/17/19 10/18/19 10/19/19 23:59 23:59 23:59 Intake Total 1500 / 1999 1880 / 1880 300 / 300 Output Total 0 / 0 Balance 1500 / 1999 1880 / 1880 300 / 300 Laboratory Results 10/18/19 14:12: Urine Color Yellow, Urine Clarity Clear, Urine pH 6.5, Ur Specific [place] 1.015, Urine Protein Negative, Urine Glucose (UA) Normal, Urine Ketones Negative, Urine Occult Blood Negative, Urine Nitrite Negative, Urine Bilirubin Negative, Urine Urobilinogen Normal, Ur Leukocyte Esterase Negative, Urine RBC 0-5 SEEN, Urine WBC 0-5 SEEN, Ur Squamous Epith Cells 0-5 SEEN, Urine Bacteria 0 SEEN, Urine Mucus 0 SEEN 10/19/19 05:20: WBC 6.6, RBC 4.50 L, Hgb 13.9, Hct 40.8, MCV 90.7, MCH 30.9, MCHC 34.1, RDW Std Deviation 40.2, RDW Coeff of Tomasa 12.2, Plt Count 213, MPV 9.8, Immature Gran % (Auto) 0.300, Neut % (Auto) 61.2, Lymph % (Auto) 27.0, [place] % (Auto) 9.5, Eos % (Auto) 1.5, Baso % (Auto) 0.5, Absolute Neuts (auto) 4.0, Absolute Lymphs (auto) 1.78, Nucleated RBC % 0 10/19/19 05:20: Sodium 145, Potassium 3.7, Chloride 110 H, Carbon Dioxide 28.0, Anion Gap 7, BUN 11, Creatinine 0.85, Estim Creat Clear Calc 83.67, Est GFR (MDRD) Af Amer 114, Est GFR (MDRD) Non-Af 94, BUN/Creatinine Ratio 13.0, Glucose 92, Calcium 8.6, Magnesium 2.0 Current Medications Acetaminophen (Tylenol) 650 mg PO Q6H PRN PRN PRN Reason: Pain Score 1-08/30 Last Admin: 10/19/19 01:40 Dose: 650 mg Documented by: Amlodipine Besylate (Norvasc) 5 mg PO DAILY [facility] Last Admin: 10/18/19 11:40 Dose: 5 mg Documented by: Aspirin (Ecotrin) 81 mg PO DAILY@0800 [facility] Last Admin: 10/18/19 11:40 Dose: 81 mg Documented by: Atorvastatin Calcium (Lipitor) 20 mg PO DAILY [facility] Last Admin: 10/18/19 11:40 Dose: 20 mg Documented by: Enoxaparin Sodium (Lovenox) 40 mg SC DAILY [facility] Last Admin: 10/18/19 11:40 Dose: 40 mg Documented by: Sodium Chloride () 250 mls @ 15 mls/hr IV .[id number] PRN PRN Reason: Saline Flush Metoprolol Succinate (Toprol Xl (Beta Alex)) 100 mg PO DAILY [facility] Last Admin: 10/18/19 11:40 Dose: 100 mg Documented by: Sodium Chloride () 10 - 40 ml IV UD PRN PRN Reason: SALINE FLUSH Medical Necessity - Tobacco Use Smoking Status: Former smoker Tobacco Use: Cigarettes, Chew Assessment/Plan All Active Problems History of hypertension (Acute) History of hypercholesterolemia (Acute) Back pain (Acute) Patient is a 74-year-old gentleman admitted with low back pain imaging studies demonstrated degenerative changes in the lumbar spine as well as bilateral hips admitted to regular nursing floor for pain management with plans for patient to be transferred to residential facility pending insurance approval 1. Acute low back pain ?Secondary to degenerative joint disease admitted to regular nursing floor for symptomatic management, PT OT and consult to 7th grade social studies teacher/case management ?10/19/2019:Awaiting insurance precertification prior to transfer to residential facility 2. Hypertension ~ blood pressure controlled, home medications continued with dose adjustment as needed 3. Dyslipidemia ~patient is on statin therapy, continued at home dose 4. DVT prophylaxis ~ on enoxaparin Advance planning; did discuss with the patient regarding advanced directives as well as CODE STATUS. Did explain the various scenarios involved ( FULL CODE, DNR CCA, DNR CCA with no intubation, and DNR CC and what each meant) patient elected to remain full code. Order was placed. Time spent on discussion 18 m inutes. Active Medications Acetaminophen (Tylenol) 650 mg PO Q6H PRN PRN PRN Reason: Pain Score 1-1010 Last Admin: 10/18/19 02:23 Dose: 650 mg Documented by: Amlodipine Besylate (Norvasc) 5 mg PO DAILY [facility] Last Admin: 10/17/19 09:29 Dose: 5 mg Documented by: Aspirin (Ecotrin) 81 mg PO DAILY@0800 [facility] Last Admin: 10/17/19 09:30 Dose: 81 mg Documented by: Atorvastatin Calcium (Lipitor) 20 mg PO DAILY [facility] Last Admin: 10/17/19 09:29 Dose: 20 mg Documented by: Enoxaparin Sodium (Lovenox) 40 mg SC DAILY [facility] Last Admin: 10/17/19 11:23 Dose: Not Given Documented by: Sodium Chloride () 250 mls @ 15 mls/hr IV .[id number] PRN PRN Reason: Saline Flush Metoprolol Succinate (Toprol Xl (Beta Alex)) 100 mg PO DAILY [facility] Last Admin: 10/17/19 09:30 Dose: 100 mg Documented by: Sodium Chloride () 10 - 40 ml IV UD PRN PRN Reason: SALINE FLUSH Clinical Impression(s) from Imaging Studies Abdomen/Pelvis CT 10/16/19 06:39 IMPRESSION: Colonic diverticulosis, without evidence for acute diverticulitis. Nonobstructive left renal calculi. Small bilateral renal cysts. No demonstrated ureteral calculi or hydronephrosis. Atherosclerosis. Incidental finding of a moderately large left hydrocele. No evidence for acute pathology. Degenerative changes in the lumbar spine and bilateral hips. No evidence for appendicitis. No evidence for bowel obstruction or ileus. Electronically Signed: Parish Hoyos MD at 7:34 EST , Service support , Code Visit OBSV E&M: 22411 Initial observation care L2
[2019-10-19 07:33] VITALS: PULSE 80
[2019-10-19 07:43] VITALS: BP 117/68; PULSE 63; RESP 18; TEMP 36.9; O2SAT 98
[2019-10-19 07:46] VITALS: PULSE 63
[2019-10-19] MEDS: Enoxaparin 40 MG/0.4 ML Syringe SC (07:46)
[2019-10-19] MEDS: Metoprolol(XL)Succ 100 MG Tablet PO (07:46)
[2019-10-19] MEDS: amLODIPine 5 MG Tablet PO (07:46)
[2019-10-19] MEDS: Aspirin E.C. 81 MG Tablet PO (07:47)
[2019-10-19] MEDS: Atorvastatin Calcium 20 MG Tablet PO (07:47)
--- NOTE | 2019-10-19 09:42 | CASEMGMT ---
Addendum entered by Lisa Bush 10/19/19 10:08: SW updated pt on approval for TCU. Pt asked this worker to update his Zabrina. SW placed a call to pt's Zabrina and updated her that pt has been approved for TCU and will be discharged there today. Zabrina states understanding. RN updated. Plan: TCU today Addendum entered by Lisa Bush 10/19/19 09:45: Physician updated, pt will discharge to TCU today. Original Note: Social Work Note SW received call from [place] adoption social worker who states she spoke with Haylee with TCU and pre-cert has been obtained and pt is able to discharge to TCU. SW will update physician. Plan: TCU today Lisa Bush MSW, UNIVERSITY ADMINISTRATOR
--- NOTE | 2019-10-19 09:50 | PCM.DC.SUM ---
Discharge Date and Diagnosis - Problem List Patient Problems: Active and Suspected Problems Back pain (Acute) Date of Admission: 10/16/19 Date of Discharge: 10/19/19 - Primary Discharge Diagnosis Active and Suspected Problems Back pain (Acute) Hospital Course and Treatment Imaging Results: Clinical Impression(s) from Imaging Studies Abdomen/Pelvis CT 10/16/19 06:39 IMPRESSION: Colonic diverticulosis, without evidence for acute diverticulitis. Nonobstructive left renal calculi. Small bilateral renal cysts. No demonstrated ureteral calculi or hydronephrosis. Atherosclerosis. Incidental finding of a moderately large left hydrocele. No evidence for acute pathology. Degenerative changes in the lumbar spine and bilateral hips. No evidence for appendicitis. No evidence for bowel obstruction or ileus. Electronically Signed: Parish Hoyos MD at 7:34 EST , Service support , Summary of Care Provided: Patient is a 74-year-old gentleman admitted with low back pain imaging studies demonstrated degenerative changes in the lumbar spine as well as bilateral hips admitted to regular nursing floor for pain management with plans for patient to be transferred to [facility] pending insurance approval 1. Acute low back pain ?Secondary to degenerative joint disease admitted to regular nursing floor for symptomatic management, PT OT and consult to social service manager/case management ?10/19/2019: Was transferred to transitional care unit once insurance precertification was obtained 2. Hypertension ~ blood pressure controlled, home medications continued with dose adjustment as needed 3. Dyslipidemia ~patient is on statin therapy, continued at home dose 4. DVT prophylaxis ~ on enoxaparin 5. Incidental finding of a moderately large left hydrocele. ~Was informed, plan is for patient to follow-up with urology as outpatient 6. Nephrolithiasis ?Currently asymptomatic Patient Problems: Active and Suspected Problems Back pain (Acute) Objective: GENERAL: cooperative HEENT: Atraumatic; EYES; Anicteric, Normal Conjunctiva NECK; supple, normal thyroid, RESPIRATORY: Diminished to auscultation CARDIOVASCULAR: Regular S1 S2, GI: soft, normoactive bowel sounds, : No Renal angle tenderness; EXTREMITIES: No edema, no clubbing, MUSCULOSKELETAL: no muscle waisting NEURO: Awake; no lateralizing signs. SKIN: No Rash - Physical Exam Vitals/I&O's: Vital Signs Temp Pulse Resp BP Pulse Ox 98.5 F 63 18 117/68 98 10/19/19 07:43 10/19/19 07:46 10/19/19 07:43 10/19/19 07:43 10/19/19 07:43 Oxygen Delivery Method Room Air Weight: 99.7 kg Body Mass Index (BMI) 30.7 Intake and Output for Last 24 Hours 10/17/19 10/18/19 10/19/19 23:59 23:59 23:59 Intake Total 1499 / 1879 300 / 300 Output Total 0 / 0 Balance 1499 300 / 300 Laboratory Results 10/18/19 14:12: Urine Color Yellow, Urine Clarity Clear, Urine pH 6.5, Ur Specific [place] 1.015, Urine Protein Negative, Urine Glucose (UA) Normal, Urine Ketones Negative, Urine Occult Blood Negative, Urine Nitrite Negative, Urine Bilirubin Negative, Urine Urobilinogen Normal, Ur Leukocyte Esterase Negative, Urine RBC 0-5 SEEN, Urine WBC 0-5 SEEN, Ur Squamous Epith Cells 0-5 SEEN, Urine Bacteria 0 SEEN, Urine Mucus 0 SEEN 10/19/19 05:20: WBC 6.6, RBC 4.50 L, Hgb 13.9, Hct 40.8, MCV 90.7, MCH 30.9, MCHC 34.1, RDW Std Deviation 40.2, RDW Coeff of Tomasa 12.2, Plt Count 213, MPV 9.8, Immature Gran % (Auto) 0.300, Neut % (Auto) 61.2, Lymph % (Auto) 27.0, [place] % (Auto) 9.5, Eos % (Auto) 1.5, Baso % (Auto) 0.5, Absolute Neuts (auto) 4.0, Absolute Lymphs (auto) 1.78, Nucleated RBC % 0 10/19/19 05:20: Sodium 145, Potassium 3.7, Chloride 110 H, Carbon Dioxide 28.0, Anion Gap 7, BUN 11, Creatinine 0.85, Estim Creat Clear Calc 83.67, Est GFR (MDRD) Af Amer 114, Est GFR (MDRD) Non-Af 94, BUN/Creatinine Ratio 13.0, Glucose 92, Calcium 8.6, Magnesium 2.0 Current Medications Acetaminophen (Tylenol) 650 mg PO Q6H PRN PRN PRN Reason: Pain Score 1-08/30 Last Admin: 10/19/19 07:49 Dose: 650 mg Documented by: Amlodipine Besylate (Norvasc) 5 mg PO DAILY [facility] Last Admin: 10/19/19 07:46 Dose: 5 mg Documented by: Aspirin (Ecotrin) 81 mg PO DAILY@0800 [facility] Last Admin: 10/19/19 07:47 Dose: 81 mg Documented by: Atorvastatin Calcium (Lipitor) 20 mg PO DAILY [facility] Last Admin: 10/19/19 07:47 Dose: 20 mg Documented by: Enoxaparin Sodium (Lovenox) 40 mg SC DAILY [facility] Last Admin: 10/19/19 07:46 Dose: 40 mg Documented by: Sodium Chloride () 250 mls @ 15 mls/hr IV .[id number] PRN PRN Reason: Saline Flush Metoprolol Succinate (Toprol Xl (Beta Alex)) 100 mg PO DAILY [facility] Last Admin: 10/19/19 07:46 Dose: 100 mg Documented by: Sodium Chloride () 10 - 40 ml IV UD PRN PRN Reason: SALINE FLUSH Home Medications: Medications to take at Discharge Amlodipine [Norvasc] 5 mg PO DAILY 12/16/17 Atorvastatin Calcium 20 mg PO DAILY 12/16/17 Metoprolol Succinate [Toprol Xl] 100 mg PO DAILY 12/16/17 Aspirin [Aspir 81] 81 mg PO DAILY 10/13/19 Vit A/Vit C/Vit E/Zinc/Copper [Preservision Areds Softgel] 1 ea PO DAILY 10/13/19 Acetaminophen [Tylenol Tablet] 650 mg PO Q6H PRN PRN tab 10/19/19 Primary Care Physician: Maurizio Ace MD [Primary Care Provider] - Medical Necessity - Tobacco Use Smoking Status: Former smoker Tobacco Use: Cigarettes, Chew Meaningful Use Info Meaningful Use Diagnoses (Choose all that apply): None applicable Code Visit OBSV E&M: 95493 Observation care discharge
--- NOTE | 2019-10-19 09:50 | PCM.TXEXTCAR ---
- Diet 10/16/19 12:49 Diet: Cardiac/Low Cholesterol Food consistency:: Regular Liquid Consistency:: Regular/Thin - Routine Orders/Code Status Code Status: Full Code - Therapies Physical Therapy: Eval and Treat Occupational Therapy: Eval and Treat - Allergies/Procedures Done in Hospital Allergies/Adverse Reactions: Allergies Penicillins Allergy (Verified 10/13/19 09:22) Hives - Type of Care/Length of Stay Estimated LOS: Convalescent Care Less Than 30 days Type of Care Needed: Skilled Rehab Potential: Good Prognosis: Good - Additional Orders/Day of Discharge Day of Discharge: 10/19/19 - Follow Up Care Primary Care Physician: Maurizio Ace MD [Primary Care Provider] - Please follow up with your Primary Care Physician in: in 1-2 weeks
--- NOTE | 2019-10-19 11:07 | NURSING ---
Report called to Jose in TCU.
== END 2019-10-19 11:22 | disposition skilled nursing facility (03) ==
LOC: ED 10:41 → MS3 11:21
PROVIDERS: Emergency Medicine; Admitting Provider Family Medicine; Emergency Provider Emergency Medicine; Family Provider Family Medicine; PCP Family Medicine; Referring Provider Family Medicine; Visit Provider Internal Medicine
DX: M47.896 Other spondylosis, lumbar region (principal); I10 Essential (primary) hypertension; N20.0 Calculus of kidney; E78.5 Hyperlipidemia, unspecified; Z79.899 Other long term (current) drug therapy; Z79.82 Long term (current) use of aspirin; Z87.891 Personal history of nicotine dependence; H35.30 Unspecified macular degeneration; N43.3 Hydrocele, unspecified
CPT/HCPCS: 36415; 74176; 80048; 81001; 83735; 85025; 96361; 96372; 96374; 96375; 97110; 97116; 97161; 97166; 97530; 97535; 99218; 99285; J7030; G0378; J2405

== ENCOUNTER 2019-10-19 11:40 | Inpatient (IN) | payer MEDICARE, SELFPAY ==
[2019-10-16 13:13] VITALS: BMI 30.7
[2019-10-19 11:51] VITALS: BP 161/70; PULSE 72; RESP 18; TEMP 36.7; O2SAT 95; BMI 30.7
--- NOTE | 2019-10-19 11:53 | CASEMGMT ---
Social Work Notified nursing patient's request to be a DNR-CCA. LIBRA FitchW
--- NOTE | 2019-10-19 12:41 | NURSING ---
Pt arrived at 11:30 from [facility] via wheelchair
[2019-10-19 15:31] VITALS: BP 119/59; PULSE 73; RESP 18; TEMP 36.7; O2SAT 98
--- NOTE | 2019-10-19 20:55 | HP.PCM_ITS ---
<Felipe Perea - Last Filed: 10/20/19 12:09> Problem List (1) Debility Status: Acute (2) Back pain Status: Acute Qualifiers: Back pain location: low back pain Chronicity: chronic Back pain latera lity: left Sciatica presence: with sciatica Sciatica laterality: sciatica of left side Qualified Code(s): M54.42 - Lumbago with sciatica, left side; G89.29 - Other chronic pain (3) Hypertension Status: Chronic (4) Hyperlipemia Status: Acute History of Present Illness Date of Admission: 10/19/19 Chief Complaint: Here for rehabilitation, strengthening, prior to being discharged home with The patient is a 74 year old M with below past medical history presented to [facility] emergency department on 10/16/2019 with complaints of low back pain after not being able to ambulate for 2 weeks. 10/16/2019-Was admitted to the floor for pain management. CT of the abdomen and pelvis showed colonic diverticulosis without evidence of acute diverticulitis, nonobstructive left renal calculi, small bilateral renal cysts, incidental large left hydrocele and degenerative changes in the lumbar spine and bilateral hips. 10/19/2019?admit to TCU with debility, here for rehabilitation, and strengthening prior to being discharged home with . Currently rating his back pain and intermittent 4 out of 10 dull pain that radiates into his left hip and is worsened with ambulation and relieved with rest and Tylenol. Past Medical History Past Medical History (Chronic Problems): Chronic Problems Hypertension (Chronic) Allergies Penicillins Allergy (Verified 10/13/19 09:22) Hives Home Medications: Ambulatory Orders Medication Instructions Recorded Amlodipine [Norvasc] 5 mg PO DAILY 12/16/17 Atorvastatin Calcium 20 mg PO DAILY 12/16/17 Metoprolol Succinate [Toprol Xl] 100 mg PO DAILY 12/16/17 Aspirin [Aspir 81] 81 mg PO DAILY 10/13/19 Vit A/Vit C/Vit E/Zinc/Copper 1 ea PO DAILY 10/13/19 [Preservision Areds Softgel] Acetaminophen [Tylenol Tablet] 650 mg PO Q6H PRN PRN tab 10/19/19 Surgical History: - - Carotid endarterectomy, trach Smoking Status: Former smoker - *Family History Maternal History Items: Cancer - Brain tumor Paternal History Items: - - Does not know his biological father Review of Systems Constitutional: Denies: Anorexia, Chills, Fever, Malaise, Weight Change Eyes: Reports: Vision Change - Right eye, chronic. Denies: Blurred vision HEENT: Denies: Difficulty Hearing, Difficulty Swallowing, Head Aches, Sinus Congestion, Sinus Drainage Cardiovascular: Denies: Chest Pain, Palpitations Respiratory: Denies: Cough, Shortness of breath at rest, Sputum production Gastrointestinal: Denies: Abdominal Pain, Nausea, Vomiting Genitourinary: Denies: Dysuria Musculoskeletal: Reports: Back Pain - Left-sided low back pain that radiates into the left lateral hip. Denies: Joint Pain, Joint Tenderness Skin: Denies: Rash, Wounds Neurological: Denies: Numbness, Tingling, Focal weakness Psychiatric: Denies: Anxiety, Depression, Homicidal Ideations, Suicidal Ideations Hematologic/ Lymphatic: Denies: Easy Bruising, Easy Bleeding VTE Information - Inpt Only VTE Present on Admission: No VTE Mechan Device Prophylaxis: SCD's VTE Pharm Prophylaxis ordered?: Yes Patient Problems: Active and Suspected Problems Debility (Acute) Hyperlipemia (Acute) - Physical Exam Vitals/I&O's: Vital Signs Temp Pulse Resp BP Pulse Ox 98.0 F 73 18 119/59 L 98 10/19/19 15:31 10/19/19 15:31 10/19/19 15:31 10/19/19 15:31 10/19/19 15:31 Oxygen Delivery Method Room Air Weight: 219 lb Body Mass Index (BMI) 30.7 Intake and Output for Last 24 Hours 10/17/19 10/18/19 10/19/19 23:59 23:59 23:59 Intake Total 480 / 480 Balance 480 / 480 General: Alert, Oriented x3, Cooperative HEENT: Atraumatic, PERRLA, EOMI, Normocephalic Oral: Moist Mucosa Neck: Supple, No JVD, Negative Carotid Bruits Lungs: Clear to auscultation, Normal air movement Cardiovascular: Regular rate, No murmurs Abdomen: Bowel Sounds Present, Soft, Non Tender Extremities: No edema, Capillary Refill Less than 3 Seconds Skin: No rashes, No breakdown Musculoskeletal: - - Slight tenderness noted to the left lateral low back and left lateral hip, full range of motion intact though diminished strength bilateral lower extremities, straight leg test positive at 45 degrees on the left side Lymphatic: No Cervical, Supraclavicular, or Inguinal Adenopathy Neurological: Cranial nerves II-XII grossly intact, Neuro grossly intact Psych/Mental Status: Normal Affect, Appropriate, Alert and oriented to time, place, person, mood and affect Current Medications Acetaminophen (Tylenol) 650 mg PO Q6H PRN PRN PRN Reason: Pain Score 1-10/10 Amlodipine Besylate (Norvasc) 5 mg PO DAILY [facility] Aspirin (Ecotrin) 81 mg PO DAILY [facility] Atorvastatin Calcium (Lipitor) 20 mg PO DAILY [facility] Metoprolol Succinate (Toprol Xl (Beta Alex)) 100 mg PO DAILY [facility] Multivitamins/Minerals (Multivitamin With Minerals) 1 tablet PO DAILY@0800 [facility] Tuberculin PPD (Tubersol, Aplisol, Ppd) 5 tu ID X1 ONE Stop: 10/20/19 10:01 Tuberculin PPD (Tubersol, Aplisol, Ppd) 5 tu ID X1 ONE Stop: 10/27/19 10:01 Assessment/Plan All Active Problems History of hypertension (Acute) History of hypercholesterolemia (Acute) Back pain (Acute) Debility (Acute) Hyperlipemia (Acute) 74-year-old male with below past medical history hospitalized for low back pain, will be admitted to TCU with debility, here for rehabilitation, strengthening, prior to being discharged home with . * Debility?PT/OT. * Back pain?acetaminophen 650 every 6 hours as needed pain (1?10), Lidoderm patch * Bowel?MiraLAX, senna, Dulcolax as needed * Adult immunization?administered Prevnar 13, Pneumovax 23, Fluzone as necessary * DVT prophylaxis?Lovenox 40 mg * Hypertension?controlled current therapy, continue amlodipine 5 mg, metoprolol succinate 100 mg * Hyperlipidemia?continue atorvastatin therapy * Incidental finding of moderately large left hydrocele-patient to follow-up with urology as outpatient * Nephrolithiasis?currently asymptomatic Discussed patient and plan of care with Dr. Cuevas and she agrees. <Miguel Talley Chi - Last Filed: 10/22/19 08:25> History of Present Illness The patient is a 74 year old M [] Past Medical History Allergies Penicillins Allergy (Verified 10/13/19 09:22) Hives - Physical Exam Vitals/I&O's: Vital Signs Temp Pulse Resp BP Pulse Ox 97.9 F 70 18 131/78 H 98 10/21/19 15:28 10/22/19 06:29 10/21/19 15:28 10/22/19 06:29 10/21/19 15:28 Oxygen Delivery Method Room Air Weight: 99.337 kg Body Mass Index (BMI) 30.7 Intake and Output for Last 24 Hours 10/20/19 10/21/19 10/22/19 23:59 23:59 23:59 Intake Total 780 / 780 720 / 720 Balance 780 / 780 720 / 720 Current Medications Acetaminophen (Tylenol) 650 mg PO Q6H PRN PRN PRN Reason: Pain Score 1-10/10 Last Admin: 10/22/19 06:34 Dose: 650 mg Documented by: Amlodipine Besylate (Norvasc) 5 mg PO DAILY [facility] Last Admin: 10/22/19 06:29 Dose: 5 mg Documented by: Aspirin (Ecotrin) 81 mg PO DAILY [facility] Last Admin: 10/22/19 06:29 Dose: 81 mg Documented by: Atorvastatin Calcium (Lipitor) 20 mg PO DAILY [facility] Last Admin: 10/22/19 06:29 Dose: 20 mg Documented by: Bisacodyl (Dulcolax) 10 mg PO DAILY PRN PRN Reason: Constipation Enoxaparin Sodium (Lovenox) 40 mg SC DAILY [facility] Last Admin: 10/22/19 06:29 Dose: 40 mg Documented by: Lidocaine (Lidoderm Patch) 1 patch TOPICAL DAILY@1000 [facility]; Protocol Last Admin: 10/22/19 07:45 Dose: 1 patch Documented by: Metoprolol Succinate (Toprol Xl (Beta Alex)) 100 mg PO DAILY [facility] Last Admin: 10/22/19 06:29 Dose: 100 mg Documented by: Multivitamins/Minerals (Multivitamin With Minerals) 1 tablet PO DAILY@0800 [facility] Last Admin: 10/22/19 07:45 Dose: 1 tablet Documented by: Polyethylene Glycol (Miralax) 17 gm PO DAILY [facility] Last Admin: 10/22/19 06:29 Dose: Not Given Documented by: Senna (Senokot) 1 tablet PO BID [facility] Last Admin: 10/22/19 06:29 Dose: 1 tablet Documented by: Tuberculin PPD (Tubersol, Aplisol, Ppd) 5 tu ID X1 ONE Stop: 10/27/19 10:01 Assessment/Plan I interviewed and examined resident independently, and agree with above.
[2019-10-19] MEDS: Acetaminophen 325 MG Tablet 650 MG PO (21:17)
--- NOTE | 2019-10-19 22:48 | PCA ---
Patient refused all pm care tonight. Patient stated I don't want to get washed up tonight because therapy told me they are going to give me a shower in the morning.
--- NOTE | 2019-10-19 22:52 | NURSING ---
Admission information reviewed with [employer] DRIVER, N.O. entered.
[2019-10-20 06:45] VITALS: BP 136/69; PULSE 70
[2019-10-20] MEDS: Atorvastatin Calcium 20 MG Tablet PO (06:45)
[2019-10-20] MEDS: Acetaminophen 325 MG Tablet 650 MG PO ×2 (06:45→17:47)
[2019-10-20] MEDS: Metoprolol(XL)Succ 100 MG Tablet PO (06:45)
[2019-10-20] MEDS: Aspirin E.C. 81 MG Tablet PO (06:45)
[2019-10-20] MEDS: Enoxaparin 40 MG/0.4 ML Syringe SC (06:45)
[2019-10-20] MEDS: amLODIPine 5 MG Tablet PO (06:46)
[2019-10-20] MEDS: Senna Tablet 1 TABLET PO ×2 (06:46→17:47)
[2019-10-20 07:21] LABS: Absolute Neutrophil Count 4.3 X10^3/uL (2.0-7.7); Basophil# 0.03 X10^3/uL; Basophil% 0.4 % (0-1); Eosinophil# 0.13 X10^3/uL; Eosinophils% 1.9 % (0-5); Hematocrit 43.6 % (40-54); Hemoglobin 14.7 g/dL (13.0-16.5); Mean Corp Hgb Conc 33.7 g/dL (32-36); Mean Corpuscular Hgb 30.7 pg (27.0-32.0); Mean Platelet Vol. 9.6 fl (6.2-12.0); Monocyte# 0.58 X10^3/uL; Monocyte% 8.7 % (0-10); NRBC Flagged by Analyzer 0 % (0-5); Neutrophil # 4.32 X10^3/uL (2.7-7.7); Neutrophil % 64.7 % (47-70); Platelet Count 245 K/mm3 (150-450); RBC Distribution Width CV 12.2 % (11.6-14.6); RBC Distribution Width SD 40.3 fl (35.1-43.9); Red Blood Count 4.79 M/mm3 (4.6-6.2); White Blood Count 6.7 K/mm3 (4.4-11.0)
[2019-10-20] MEDS: Multivitamins,Ther W-Minerals Tablet 1 TABLET PO (07:57)
[2019-10-20 08:02] LABS: Anion Gap 9 (5-15); BUN 11 mg/dL (7-18); BUN/Creat Ratio 12.7 RATIO (10-20); Chloride 107 mmol/L (98-107); Creatinine, Serum 0.86 mg/dL (0.70-1.30); EST Glomerular Filtration Rate 92 mL/min (>60); Est Glom Filt Rate - Afr Amer 112 mL/min (>60); Estimated Creatinine Clearance 80.17 ml/min; Glucose 91 mg/dL (74-106); Potassium 3.5 mmol/L (3.5-5.1); Sodium Level 144 mmol/L (136-145)
[2019-10-20] MEDS: Lidocaine 5% Patch 1 PATCH TOPICAL (10:46)
[2019-10-20] MEDS: Tuberculin,Purif.prot.deriv. 50 TU/ML Vial 5 ML ID (10:46)
[2019-10-20 16:00] VITALS: BP 99/67; PULSE 70; RESP 18; TEMP 36.7; O2SAT 97
[2019-10-21 06:23] VITALS: BP 130/78; PULSE 72
[2019-10-21] MEDS: Metoprolol(XL)Succ 100 MG Tablet PO (06:23)
[2019-10-21] MEDS: Atorvastatin Calcium 20 MG Tablet PO (06:23)
[2019-10-21] MEDS: Senna Tablet 1 TABLET PO ×2 (06:24→16:56)
[2019-10-21] MEDS: Acetaminophen 325 MG Tablet 650 MG PO ×3 (06:24→21:21)
[2019-10-21] MEDS: amLODIPine 5 MG Tablet PO (06:24)
[2019-10-21] MEDS: Enoxaparin 40 MG/0.4 ML Syringe SC (06:24)
[2019-10-21] MEDS: Aspirin E.C. 81 MG Tablet PO (06:24)
[2019-10-21] MEDS: Multivitamins,Ther W-Minerals Tablet 1 TABLET PO (07:55)
[2019-10-21] MEDS: Lidocaine 5% Patch 1 PATCH TOPICAL (07:55)
[2019-10-21 15:28] VITALS: BP 139/78; PULSE 80; RESP 18; TEMP 36.6; O2SAT 98
[2019-10-22 06:29] VITALS: BP 131/78; PULSE 70
[2019-10-22] MEDS: amLODIPine 5 MG Tablet PO (06:29)
[2019-10-22] MEDS: Metoprolol(XL)Succ 100 MG Tablet PO (06:29)
[2019-10-22] MEDS: Senna Tablet 1 TABLET PO ×2 (06:29→17:04)
[2019-10-22] MEDS: Aspirin E.C. 81 MG Tablet PO (06:29)
[2019-10-22] MEDS: Enoxaparin 40 MG/0.4 ML Syringe SC (06:29)
[2019-10-22] MEDS: Atorvastatin Calcium 20 MG Tablet PO (06:29)
[2019-10-22] MEDS: Acetaminophen 325 MG Tablet 650 MG PO ×3 (06:34→20:54)
[2019-10-22] MEDS: Lidocaine 5% Patch 1 PATCH TOPICAL (07:45)
[2019-10-22] MEDS: Multivitamins,Ther W-Minerals Tablet 1 TABLET PO (07:45)
--- NOTE | 2019-10-22 15:36 | PCM.PN.RX ---
<Meagan Enamorado - Last Filed: 10/22/19 15:36> Progress Note - Pharmacy Subjective: TCU Admission Objective: Allergies Penicillins Allergy (Verified 10/13/19 09:22) Hives Current Medications Generic Name Dose Route Start Last Admin Trade Name Freq PRN Reason Stop Dose Admin Acetaminophen 650 mg 10/19/19 12:03 10/22/19 12:15 Tylenol PO 650 mg Q6H PRN PRN Administration Pain Score 1-10/10 Amlodipine Besylate 5 mg 10/20/19 06:00 10/22/19 06:29 Norvasc PO 5 mg DAILY [facility] Administration Aspirin 81 mg 10/20/19 06:00 10/22/19 06:29 Ecotrin PO 81 mg DAILY [facility] Administration Atorvastatin Calcium 20 mg 10/20/19 06:00 10/22/19 06:29 Lipitor PO 20 mg DAILY [facility] Administration Bisacodyl 10 mg 10/19/19 22:09 Dulcolax PO DAILY PRN Constipation Enoxaparin Sodium 40 mg 10/20/19 06:00 10/22/19 06:29 Lovenox SC 40 mg DAILY [facility] Administration Lidocaine 1 patch 10/20/19 10:00 10/22/19 07:45 Lidoderm Patch TOPICAL 1 patch DAILY@1000 [facility] Administration Protocol Metoprolol Succinate 100 mg 10/20/19 06:00 10/22/19 06:29 Toprol Xl (Beta Alex) PO 100 mg DAILY [facility] Administration Multivitamins/Minerals 1 tablet 10/20/19 08:00 10/22/19 07:45 Multivitamin With Minerals PO 1 tablet DAILY@0800 [facility] Administration Polyethylene Glycol 17 gm 10/20/19 06:00 10/22/19 06:29 Miralax PO Not Given DAILY [facility] Senna 1 tablet 10/20/19 06:00 10/22/19 06:29 Senokot PO 1 tablet BID [facility] Administration Tuberculin PPD 5 tu 10/27/19 10:00 Tubersol, Aplisol, Ppd ID 10/27/19 10:01 X1 ONE Problem List Debility (Acute) Hypertension (Chronic) Hyperlipemia (Acute) Vital Signs Temp Pulse Resp BP Pulse Ox 97.9 F 70 18 131/78 H 98 10/21/19 15:28 10/22/19 06:29 10/21/19 15:28 10/22/19 06:29 10/21/19 15:28 Oxygen Delivery Method Room Air Weight: 99.337 kg Body Mass Index (BMI) 30.7 Sodium 144 mmol/L (136-145) 10/20/19 07:08 Potassium 3.5 mmol/L (3.5-5.1) 10/20/19 07:08 Chloride 107 mmol/L (98-107) 10/20/19 07:08 Carbon Dioxide 28.0 mmol/L (21.0-32.0) 10/20/19 07:08 Anion Gap 9 (5-15) 10/20/19 07:08 BUN 11 mg/dL (7-18) 10/20/19 07:08 Creatinine 0.86 mg/dL (0.70-1.30) 10/20/19 07:08 Est GFR (MDRD) Af Amer 112 mL/min (>60) 10/20/19 07:08 Est GFR (MDRD) Non-Af 92 mL/min (>60) 10/20/19 07:08 BUN/Creatinine Ratio 12.7 RATIO (10-20) 10/20/19 07:08 Glucose 91 mg/dL (74-106) 10/20/19 07:08 Assessment/Plan: *1. Pain: acetaminophen 650mg PO Q6H PRN pain (-08/30) and lidocaine 5% 1 patch topically to the left hip/back once daily. Please consider changing from PRN to scheduled Q6H. Patient has been taking consistently for 2 days. Please continue to monitor for increased pain. 2. DVT prophylaxis: enoxaparin 40mg SC daily. Please continue to monitor for S/S of bleeding, platelets, and renal function. 3. Hypertension: amlodipine 5mg PO daily and metoprolol succinate 100mg PO daily. Please continue to monitor for S/S of swelling, HR and BP. 4. Hyperlipidemia: atorvastatin 20mg PO daily. Lipid panel and LFTs up to date and WNL. Please continue to monitor for muscle pain. 5. Overall nutrition: multivitamin 1T PO daily. Please continue to monitor. Psychotropic Medications: None *Unnecessary Medications: aspirin 81mg PO daily. I could not find a documented indication for aspirin. Please consider stopping if clinically appropriate. *Bowel Regimen: Miralax 17gm PO daily, senna 1T PO BID, bisacodyl 10mg PO daily PRN constipation. Please consider changing Miralax from scheduled daily to daily PRN constipation due to patient refusing 3/3 possible doses. Please continue to monitor for constipation. Date of Note:: 10/22/19 - Provider Comments Provider responsibility: Provider responsible to enter orders to implement recommendations <Miguel Talley Chi - Last Filed: 10/22/19 21:37> Progress Note - Pharmacy Subjective: [] Objective: Allergies Penicillins Allergy (Verified 10/13/19 09:22) Hives Current Medications Generic Name Dose Route Start Last Admin Trade Name Freq PRN Reason Stop Dose Admin Acetaminophen 650 mg 10/19/19 12:03 10/22/19 20:54 Tylenol PO 650 mg Q6H PRN PRN Administration Pain Score 1-10/10 Amlodipine Besylate 5 mg 10/20/19 06:00 10/22/19 06:29 Norvasc PO 5 mg DAILY [facility] Administration Aspirin 81 mg 10/20/19 06:00 10/22/19 06:29 Ecotrin PO 81 mg DAILY [facility] Administration Atorvastatin Calcium 20 mg 10/20/19 06:00 10/22/19 06:29 Lipitor PO 20 mg DAILY [facility] Administration Bisacodyl 10 mg 10/19/19 22:09 Dulcolax PO DAILY PRN Constipation Enoxaparin Sodium 40 mg 10/20/19 06:00 10/22/19 06:29 Lovenox SC 40 mg DAILY [facility] Administration Lidocaine 1 patch 10/20/19 10:00 10/22/19 07:45 Lidoderm Patch TOPICAL 1 patch DAILY@1000 [facility] Administration Protocol Metoprolol Succinate 100 mg 10/20/19 06:00 10/22/19 06:29 Toprol Xl (Beta Alex) PO 100 mg DAILY [facility] Administration Multivitamins/Minerals 1 tablet 10/20/19 08:00 10/22/19 07:45 Multivitamin With Minerals PO 1 tablet DAILY@0800 [facility] Administration Polyethylene Glycol 17 gm 10/20/19 06:00 10/22/19 06:29 Miralax PO Not Given DAILY [facility] Senna 1 tablet 10/20/19 06:00 10/22/19 17:04 Senokot PO 1 tablet BID [facility] Administration Tuberculin PPD 5 tu 10/27/19 10:00 Tubersol, Aplisol, Ppd ID 10/27/19 10:01 X1 ONE Problem List Debility (Acute) Hypertension (Chronic) Hyperlipemia (Acute) Vital Signs Temp Pulse Resp BP Pulse Ox 97.5 F L 67 18 120/70 97 10/22/19 15:52 10/22/19 15:52 10/22/19 15:52 10/22/19 15:52 10/22/19 15:52 Oxygen Delivery Method Room Air Weight: 99.337 kg Body Mass Index (BMI) 30.7 Sodium 144 mmol/L (136-145) 10/20/19 07:08 Potassium 3.5 mmol/L (3.5-5.1) 10/20/19 07:08 Chloride 107 mmol/L (98-107) 10/20/19 07:08 Carbon Dioxide 28.0 mmol/L (21.0-32.0) 10/20/19 07:08 Anion Gap 9 (5-15) 10/20/19 07:08 BUN 11 mg/dL (7-18) 10/20/19 07:08 Creatinine 0.86 mg/dL (0.70-1.30) 10/20/19 07:08 Est GFR (MDRD) Af Amer 112 mL/min (>60) 10/20/19 07:08 Est GFR (MDRD) Non-Af 92 mL/min (>60) 10/20/19 07:08 BUN/Creatinine Ratio 12.7 RATIO (10-20) 10/20/19 07:08 Glucose 91 mg/dL (74-106) 10/20/19 07:08 Assessment/Plan: Psychotropic Medications: Unnecessary Medications: Bowel Regimen: - Provider Comments Provider responsibility: Provider responsible to enter orders to implement recommendations Provider Comments to Recommendations by Pharmacy: Agree
[2019-10-22 15:52] VITALS: BP 120/70; PULSE 67; RESP 18; TEMP 36.4; O2SAT 97
[2019-10-23] MEDS: Acetaminophen 325 MG Tablet 650 MG PO ×5 (00:55→22:59)
[2019-10-23] MEDS: Enoxaparin 40 MG/0.4 ML Syringe SC (04:40)
[2019-10-23 04:41] VITALS: BP 144/63; PULSE 66
[2019-10-23] MEDS: amLODIPine 5 MG Tablet PO (04:41)
[2019-10-23] MEDS: Aspirin E.C. 81 MG Tablet PO (04:41)
[2019-10-23] MEDS: Atorvastatin Calcium 20 MG Tablet PO (04:41)
[2019-10-23] MEDS: Metoprolol(XL)Succ 100 MG Tablet PO (04:41)
[2019-10-23] MEDS: Senna Tablet 1 TABLET PO (04:41)
[2019-10-23] MEDS: Lidocaine 5% Patch 1 PATCH TOPICAL (08:38)
[2019-10-23] MEDS: Multivitamins,Ther W-Minerals Tablet 1 TABLET PO (08:38)
[2019-10-23 16:00] VITALS: BP 145/90; PULSE 77; RESP 22; TEMP 36.3; O2SAT 98
--- NOTE | 2019-10-23 23:12 | NURSING ---
Pt reported to RN when voiding urinary stream is small. Will update Dr Talley.
[2019-10-24] MEDS: amLODIPine 5 MG Tablet PO (05:40)
[2019-10-24] MEDS: Senna Tablet 1 TABLET PO ×2 (05:40→17:29)
[2019-10-24] MEDS: Acetaminophen 325 MG Tablet 650 MG PO ×4 (05:40→23:10)
[2019-10-24 05:41] VITALS: BP 122/66; PULSE 74
[2019-10-24] MEDS: Metoprolol(XL)Succ 100 MG Tablet PO (05:41)
[2019-10-24] MEDS: Enoxaparin 40 MG/0.4 ML Syringe SC (05:41)
[2019-10-24] MEDS: Aspirin E.C. 81 MG Tablet PO (05:41)
[2019-10-24] MEDS: Atorvastatin Calcium 20 MG Tablet PO (05:41)
[2019-10-24] MEDS: Lidocaine 5% Patch 1 PATCH TOPICAL (07:55)
[2019-10-24] MEDS: Multivitamins,Ther W-Minerals Tablet 1 TABLET PO (07:55)
--- NOTE | 2019-10-24 10:51 | CASEMGMT ---
Social Work IDT met with patient and for care plan meeting. Discussed patient's progress in therapy. Pt is CGA for sit to stand, SBA for UE, LE ADLS and toileting, and walking 100 ft CGA, has not completed steps yet. Pt has back pain that is limiting and sitting/standing straight makes it worse. Pt lives at home with with 2 steps to enter and 2 steps to bedroom. can assist at home. Explained insurance with update 10/23 and continued stay is not guaranteed. Will continue to follow. Nydia Wynne, INTEGRATED PROGRAM TEACHER MANAGER LONG TERM CARE
--- NOTE | 2019-10-24 15:01 | NURSING ---
pt had c/o about urinary issues, small urine stream Dr saldana saw and entered new order for flomax.
[2019-10-24 16:00] VITALS: BP 118/68; PULSE 70; RESP 14; TEMP 36.7; O2SAT 98
[2019-10-24] MEDS: Tamsulosin HCl 0.4 MG Capsule PO (17:29)
--- NOTE | 2019-10-24 18:07 | RAD_ITS ---
STUDY: X-RAY - LUMBOSACRAL SPINE REASON FOR EXAM: Male, 74 years old. Pain TECHNIQUE: 8 view(s) of the lumbosacral spine were obtained, including flexion and extension lateral views. COMPARISON: None FINDINGS: Slightly diminished lumbar lordosis. There is no substantial scoliosis. There is normal alignment of the vertebrae. Degenerative changes of the vertebral bodies with spurring at the endplates. Mildly depressed superior endplates throughout the lumbar column. Narrowed L4-5 disc space. There is limited flexion and extension. Normal bilateral sacral ala, sacroiliac joints, and visualized sacrum. Normal visualized soft tissue structures. RAD/L/S Spine w Bend Min 6 Vw IMPRESSION: Diffuse degenerative changes and depressed superior endplates are noted. Electronically Signed: Kwadwo Martin DO at 2:05 EST Tel [phone], Service support ,
[2019-10-25 05:45] VITALS: BP 151/55; PULSE 68
[2019-10-25] MEDS: Acetaminophen 325 MG Tablet 650 MG PO ×4 (05:45→23:05)
[2019-10-25] MEDS: Atorvastatin Calcium 20 MG Tablet PO (05:45)
[2019-10-25] MEDS: Senna Tablet 1 TABLET PO ×2 (05:45→17:25)
[2019-10-25] MEDS: Aspirin E.C. 81 MG Tablet PO (05:45)
[2019-10-25] MEDS: amLODIPine 5 MG Tablet PO (05:45)
[2019-10-25] MEDS: Metoprolol(XL)Succ 100 MG Tablet PO (05:45)
[2019-10-25] MEDS: Enoxaparin 40 MG/0.4 ML Syringe SC (05:46)
[2019-10-25] MEDS: Multivitamins,Ther W-Minerals Tablet 1 TABLET PO (07:37)
[2019-10-25] MEDS: Lidocaine 5% Patch 1 PATCH TOPICAL (07:38)
[2019-10-25] MEDS: Polyethylene Glycol 3350 17 GM PACKET PO (11:47)
--- NOTE | 2019-10-25 13:44 | MDS.RN ---
Pain interview for arelis 10/26/19 completedl.
[2019-10-25 15:44] VITALS: BP 147/82; PULSE 78; RESP 20; TEMP 36.8; O2SAT 97
[2019-10-25] MEDS: Tamsulosin HCl 0.4 MG Capsule PO (17:25)
--- NOTE | 2019-10-25 18:19 | NURSING ---
back xray done lastnight d/t sciatica pain. dr saldana reviewed, no new orders.
--- NOTE | 2019-10-25 22:04 | NURSING ---
pt c/o feeling full and needs to have a bm. pt given prune juice. refuse dulcolax
[2019-10-26 05:26] VITALS: BP 130/70; PULSE 75
[2019-10-26] MEDS: Senna Tablet 1 TABLET PO ×2 (05:26→16:31)
[2019-10-26] MEDS: amLODIPine 5 MG Tablet PO (05:26)
[2019-10-26] MEDS: Metoprolol(XL)Succ 100 MG Tablet PO (05:26)
[2019-10-26] MEDS: Enoxaparin 40 MG/0.4 ML Syringe SC (05:26)
[2019-10-26] MEDS: Aspirin E.C. 81 MG Tablet PO (05:26)
[2019-10-26] MEDS: Acetaminophen 325 MG Tablet 650 MG PO ×4 (05:27→23:05)
[2019-10-26] MEDS: Atorvastatin Calcium 20 MG Tablet PO (05:27)
[2019-10-26] MEDS: Multivitamins,Ther W-Minerals Tablet 1 TABLET PO (09:18)
[2019-10-26] MEDS: Lidocaine 5% Patch 1 PATCH TOPICAL (09:18)
[2019-10-26] MEDS: Polyethylene Glycol 3350 17 GM PACKET PO (12:41)
[2019-10-26 16:00] VITALS: BP 120/62; PULSE 74; RESP 20; TEMP 36.9; O2SAT 99
[2019-10-26] MEDS: Tamsulosin HCl 0.4 MG Capsule PO (16:32)
[2019-10-27] MEDS: Acetaminophen 325 MG Tablet 650 MG PO ×4 (05:03→23:52)
[2019-10-27] MEDS: Enoxaparin 40 MG/0.4 ML Syringe SC (05:03)
[2019-10-27] MEDS: Aspirin E.C. 81 MG Tablet PO (05:03)
[2019-10-27] MEDS: Senna Tablet 1 TABLET PO ×2 (05:03→17:13)
[2019-10-27] MEDS: Atorvastatin Calcium 20 MG Tablet PO (05:03)
[2019-10-27] MEDS: amLODIPine 5 MG Tablet PO (05:03)
[2019-10-27] MEDS: Polyethylene Glycol 3350 17 GM PACKET PO (05:03)
[2019-10-27 05:07] VITALS: BP 121/54; PULSE 67
[2019-10-27] MEDS: Metoprolol(XL)Succ 100 MG Tablet PO (05:07)
[2019-10-27] MEDS: Multivitamins,Ther W-Minerals Tablet 1 TABLET PO (07:58)
[2019-10-27] MEDS: Tuberculin,Purif.prot.deriv. 50 TU/ML Vial 5 ML ID (07:59)
[2019-10-27 08:36] LABS: Absolute Lymphocyte Count 1.49 X10^3/uL (0.83-4.51); Absolute Neutrophil Count 4.9 X10^3/uL (2.0-7.7); Basophil# 0.03 X10^3/uL; Basophil% 0.4 % (0-1); Eosinophil# 0.16 X10^3/uL; Eosinophils% 2.2 % (0-5); Hematocrit 43.3 % (40-54); Hemoglobin 14.7 g/dL (13.0-16.5); Lymphocyte # 1.49 X10^3/ul (4.0); Lymphocyte % 20.6 % (19-41); Mean Corp Hgb Conc 33.9 g/dL (32-36); Mean Corpuscular Hgb 31.2 pg (27.0-32.0); Mean Corpuscular Volume 91.9 fL (80-94); Monocyte# 0.66 X10^3/uL; Monocyte% 9.1 % (0-10); NRBC Flagged by Analyzer 0 % (0-5); Neutrophil # 4.86 X10^3/uL (2.7-7.7); Neutrophil % 67.4 % (47-70); Platelet Count 265 K/mm3 (150-450); RBC Distribution Width CV 12.7 % (11.6-14.6); RBC Distribution Width SD 41.7 fl (35.1-43.9); Red Blood Count 4.71 M/mm3 (4.6-6.2); White Blood Count 7.2 K/mm3 (4.4-11.0)
[2019-10-27 08:46] LABS: Anion Gap 4 (5-15); BUN 13 mg/dL (7-18); Chloride 109 mmol/L (98-107); Creatinine, Serum 0.86 mg/dL (0.70-1.30); EST Glomerular Filtration Rate 92 mL/min (>60); Est Glom Filt Rate - Afr Amer 112 mL/min (>60); Estimated Creatinine Clearance 80.17 ml/min; Glucose 111 mg/dL (74-106); Potassium 3.8 mmol/L (3.5-5.1); Sodium Level 143 mmol/L (136-145)
[2019-10-27] MEDS: Lidocaine 5% Patch 1 PATCH TOPICAL (10:54)
[2019-10-27 15:57] VITALS: BP 115/69; PULSE 64; RESP 18; TEMP 36.7; O2SAT 98
[2019-10-27] MEDS: Tamsulosin HCl 0.4 MG Capsule PO (17:13)
[2019-10-28] MEDS: Atorvastatin Calcium 20 MG Tablet PO (05:20)
[2019-10-28] MEDS: Acetaminophen 325 MG Tablet 650 MG PO ×4 (05:20→23:12)
[2019-10-28] MEDS: Senna Tablet 1 TABLET PO ×2 (05:20→16:56)
[2019-10-28] MEDS: amLODIPine 5 MG Tablet PO (05:20)
[2019-10-28 05:21] VITALS: BP 150/95; PULSE 72
[2019-10-28] MEDS: Metoprolol(XL)Succ 100 MG Tablet PO (05:21)
[2019-10-28] MEDS: Enoxaparin 40 MG/0.4 ML Syringe SC (05:21)
[2019-10-28] MEDS: Aspirin E.C. 81 MG Tablet PO (05:21)
[2019-10-28] MEDS: Polyethylene Glycol 3350 17 GM PACKET PO (05:26)
[2019-10-28] MEDS: Multivitamins,Ther W-Minerals Tablet 1 TABLET PO (09:13)
[2019-10-28] MEDS: Lidocaine 5% Patch 1 PATCH TOPICAL (09:13)
[2019-10-28 15:32] VITALS: BP 121/72; PULSE 75; RESP 16; TEMP 36.7; O2SAT 97
[2019-10-28] MEDS: Tamsulosin HCl 0.4 MG Capsule PO (16:56)
[2019-10-29 05:37] VITALS: BP 131/69; PULSE 77
[2019-10-29] MEDS: Acetaminophen 325 MG Tablet 650 MG PO ×4 (05:37→23:26)
[2019-10-29] MEDS: Metoprolol(XL)Succ 100 MG Tablet PO (05:37)
[2019-10-29] MEDS: Enoxaparin 40 MG/0.4 ML Syringe SC (05:37)
[2019-10-29] MEDS: Polyethylene Glycol 3350 17 GM PACKET PO (05:37)
[2019-10-29] MEDS: Aspirin E.C. 81 MG Tablet PO (05:38)
[2019-10-29] MEDS: Atorvastatin Calcium 20 MG Tablet PO (05:38)
[2019-10-29] MEDS: Senna Tablet 1 TABLET PO ×2 (05:38→17:42)
[2019-10-29] MEDS: amLODIPine 5 MG Tablet PO (05:38)
[2019-10-29] MEDS: Lidocaine 5% Patch 1 PATCH TOPICAL (07:55)
[2019-10-29] MEDS: Multivitamins,Ther W-Minerals Tablet 1 TABLET PO (07:55)
[2019-10-29 15:06] VITALS: BP 127/71; PULSE 70; RESP 16; TEMP 36.8; O2SAT 95
[2019-10-29] MEDS: Tamsulosin HCl 0.4 MG Capsule PO (17:42)
[2019-10-29] MEDS: MethylPREDNISolone DosePak 4 MG BOX PO (19:33)
--- NOTE | 2019-10-29 20:27 | PN_ITS ---
Subjective: Resident seen in room, he had questions about his spine X-ray, I explained the X-ray showed arthritis, and lumbar disc disease, resident states Tylenol helpful, but pain still sharp, severe at times. He reports he has had good response to steroid therapy in the past. Vitals/I&O's: Vital Signs Temp Pulse Resp BP Pulse Ox 98.3 F 70 16 127/71 H 95 10/29/19 15:06 10/29/19 15:06 10/29/19 15:06 10/29/19 15:06 10/29/19 15:06 Oxygen Delivery Method Room Air Weight: 98.968 kg Body Mass Index (BMI) 30.7 Intake and Output for Last 24 Hours 10/27/19 10/28/19 10/29/19 23:59 23:59 23:59 Intake Total 1200 / 1200 1080 / 1080 540 / 540 Balance 1200 / 1200 1080 / 1080 540 / 540 Past Medical History Past Medical History (Chronic Problems): Chronic Problems Hypertension (Chronic) Allergies Penicillins Allergy (Verified 10/13/19 09:22) Hives Home Medications: Ambulatory Orders Medication Instructions Recorded Amlodipine [Norvasc] 5 mg PO DAILY 12/16/17 Atorvastatin Calcium 20 mg PO DAILY 12/16/17 Metoprolol Succinate [Toprol Xl] 100 mg PO DAILY 12/16/17 Aspirin [Aspir 81] 81 mg PO DAILY 10/13/19 Vit A/Vit C/Vit E/Zinc/Copper 1 ea PO DAILY 10/13/19 [Preservision Areds Softgel] Acetaminophen [Tylenol Tablet] 650 mg PO Q6H PRN PRN tab 10/19/19 Surgical History: - - Carotid endarterectomy, trach Smoking Status: Former smoker - *Family History Maternal History Items: Cancer - Brain tumor Paternal History Items: - - Does not know his biological father Capacity - Capacity Assessment Tool Can the patient make a choice & communicate that choice?: Yes Can the patient understand benefits, risks and alternatives?: Yes Can the patient make a logical, rational choice?: Yes Is the choice the patient makes consistent w/ their values?: Yes Is there an impending, emergent risk to the patient?: No Does the patient have an Advance Directive?: Yes Is there a Surrogate Available?: Yes i.e. HCPOA: Yes i.e. close relative (spouse, child, parent, sibling)?: Yes Review of Systems Constitutional: Denies: Chills, Fever, Weight Change HEENT: Denies: Head Aches, Sinus Congestion, Sinus Drainage Cardiovascular: Denies: Chest Pain, Palpitations Respiratory: Denies: Cough, Shortness of breath at rest, Sputum production Gastrointestinal: Denies: Abdominal Pain, Nausea, Vomiting Genitourinary: Denies: Dysuria Musculoskeletal: Reports: Back Pain. Denies: Joint Pain, Joint Tenderness Skin: Denies: Rash, Wounds Neurological: Denies: Numbness, Tingling, Focal weakness Psychiatric: Denies: Anxiety, Depression, Homicidal Ideations, Suicidal Ideations Hematologic/ Lymphatic: Denies: Easy Bruising, Easy Bleeding Patient Problems: Active and Suspected Problems Debility (Acute) Hyperlipemia (Acute) - Physical Exam Vitals/I&O's: Vital Signs Temp Pulse Resp BP Pulse Ox 98.3 F 70 16 127/71 H 95 10/29/19 15:06 10/29/19 15:06 10/29/19 15:06 10/29/19 15:06 10/29/19 15:06 Oxygen Delivery Method Room Air Weight: 98.968 kg Body Mass Index (BMI) 30.7 Intake and Output for Last 24 Hours 10/27/19 10/28/19 10/29/19 23:59 23:59 23:59 Intake Total 1200 / 1200 1080 / 1080 540 / 540 Balance 1200 / 1200 1080 / 1080 540 / 540 General: Alert, Oriented x3, Cooperative HEENT: Atraumatic, PERRLA, EOMI, Normocephalic Neck: Supple, No JVD, Negative Carotid Bruits Lungs: Clear to auscultation, Normal air movement Cardiovascular: Regular rate, No murmurs Abdomen: Bowel Sounds Present, Soft, Non Tender Extremities: No edema, Capillary Refill Less than 3 Seconds Skin: No rashes, No breakdown Musculoskeletal: No Tenderness to Palpation of Joints or Extremities Neurological: Cranial nerves II-XII grossly intact Psych/Mental Status: Normal Affect, Appropriate Current Medications Acetaminophen (Tylenol) 650 mg PO Q6 [facility] Last Admin: 10/29/19 17:42 Dose: 650 mg Documented by: Amlodipine Besylate (Norvasc) 5 mg PO DAILY [facility] Last Admin: 10/29/19 05:38 Dose: 5 mg Documented by: Aspirin (Ecotrin) 81 mg PO DAILY [facility] Last Admin: 10/29/19 05:38 Dose: 81 mg Documented by: Atorvastatin Calcium (Lipitor) 20 mg PO DAILY [facility] Last Admin: 10/29/19 05:38 Dose: 20 mg Documented by: Bisacodyl (Dulcolax) 10 mg PO DAILY PRN PRN Reason: Constipation Enoxaparin Sodium (Lovenox) 40 mg SC DAILY [facility] Last Admin: 10/29/19 05:37 Dose: 40 mg Documented by: Lidocaine (Lidoderm Patch) 1 patch TOPICAL DAILY@1000 [facility]; Protocol Last Admin: 10/29/19 07:55 Dose: 1 patch Documented by: Methylprednisolone (Medrol Dosepak) 24 mg PO 2200 [facility]; Taper Stop: 11/03/19 08:59 Last Admin: 10/29/19 19:33 Dose: 24 mg Documented by: Metoprolol Succinate (Toprol Xl (Beta Alex)) 100 mg PO DAILY [facility] Last Admin: 10/29/19 05:37 Dose: 100 mg Documented by: Multivitamins/Minerals (Multivitamin With Minerals) 1 tablet PO DAILY@0800 [facility] Last Admin: 10/29/19 07:55 Dose: 1 tablet Documented by: Polyethylene Glycol (Miralax) 17 gm PO DAILY PRN PRN Reason: Constipation Last Admin: 10/29/19 05:37 Dose: 17 gm Documented by: Senna (Senokot) 1 tablet PO BID [facility] Last Admin: 10/29/19 17:42 Dose: 1 tablet Documented by: Tamsulosin HCl (Flomax) 0.4 mg PO DAILY@1730 [facility] Last Admin: 10/29/19 17:42 Dose: 0.4 mg Documented by: Assessment/Plan All Active Problems History of hypertension (Acute) History of hypercholesterolemia (Acute) Back pain (Acute) Debility (Acute) Hyperlipemia (Acute) 74-year-old male with below past medical history hospitalized for low back pain, will be admitted to TCU with debility, here for rehabilitation, strengthening, prior to being discharged home with . * Low Back Pain - Add Medrol Dose Pack, and see how he responds.
[2019-10-30 05:47] VITALS: BP 138/72; PULSE 60
[2019-10-30] MEDS: Metoprolol(XL)Succ 100 MG Tablet PO (05:47)
[2019-10-30] MEDS: Atorvastatin Calcium 20 MG Tablet PO (05:47)
[2019-10-30] MEDS: Aspirin E.C. 81 MG Tablet PO (05:47)
[2019-10-30] MEDS: amLODIPine 5 MG Tablet PO (05:47)
[2019-10-30] MEDS: Senna Tablet 1 TABLET PO ×2 (05:47→16:52)
[2019-10-30] MEDS: Enoxaparin 40 MG/0.4 ML Syringe SC (05:47)
[2019-10-30] MEDS: Polyethylene Glycol 3350 17 GM PACKET PO (05:48)
[2019-10-30] MEDS: Acetaminophen 325 MG Tablet 650 MG PO ×4 (05:48→23:21)
[2019-10-30] MEDS: MethylPREDNISolone DosePak 4 MG BOX PO ×4 (08:43→20:20)
[2019-10-30] MEDS: Multivitamins,Ther W-Minerals Tablet 1 TABLET PO (08:43)
--- NOTE | 2019-10-30 15:46 | CASEMGMT ---
Social Work Insurance issued LCD 11/01, DC 11/02. Pt agreeable. Pt requesting Modify Outpatient PT/OT and FWW. Referrals made. Plan: DC home 11/02 with outpatient PT/OT and FWW [facility]
[2019-10-30 16:00] VITALS: BP 138/74; PULSE 82; RESP 18; TEMP 37.1; O2SAT 96
[2019-10-30] MEDS: Tamsulosin HCl 0.4 MG Capsule PO (16:52)
--- NOTE | 2019-10-30 20:34 | DCINST_ITS ---
- Discharge Diagnoses Current Active Problems: Current Active and Chronic Problems Debility (Acute) Hypertension (Chronic) Hyperlipemia (Acute) You will use the following diet at home:: No restrictions, Regular Your food should be the consistency of: Regular Your liquids should be the consistency of: Regular/Thin Discharge Activity: Return to Normal Activity, May Shower, Use Walker May resume sexual activity in: No Restrictions Weight Bearing Status: Weight bearing as tolerated Call your doctor if you observe: Fever of 101 or Higher, Inability to urinate, Inability to have a bowel movement, Shortness of breath, Chest pain, Uncontrolled pain Allergies/Adverse Reactions: Allergies Penicillins Allergy (Verified 10/13/19 09:22) Hives Medications to take at Discharge Amlodipine [Norvasc] 5 mg PO DAILY 12/16/17 Atorvastatin Calcium 20 mg PO DAILY 12/16/17 Metoprolol Succinate [Toprol Xl] 100 mg PO DAILY 12/16/17 Aspirin [Aspir 81] 81 mg PO DAILY 10/13/19 Vit A/Vit C/Vit E/Zinc/Copper [Preservision Areds Softgel] 1 ea PO DAILY 10/13/19 Acetaminophen [Tylenol Tablet] 650 mg PO Q6H PRN PRN tab 10/19/19 Lidocaine [Lidoderm Patch] 1 patch TOPICAL DAILY@1000 #30 patch 10/30/19 Tamsulosin HCl [Flomax] 0.4 mg PO DAILY@1730 #30 cap 10/30/19 The following prescriptions were given: Tamsulosin HCl [Flomax] 0.4 mg PO DAILY@1730 #30 cap Transmission Status: Pending to [id number] Lidocaine [Lidoderm Patch] 1 patch TOPICAL DAILY@1000 #30 patch Transmission Status: Pending to [id number] Primary Care Physician: Maurizio Ace MD [Primary Care Provider] - Please follow up with your Primary Care Physician in: 1 week. Test Results: Test results from this visit will be discussed in further detail at your follow- up appointment, if applicable. Proposed Discharge Date: 11/02/19
--- NOTE | 2019-10-30 20:36 | DS.PCM_ITS ---
Discharge Date and Diagnosis - Problem List Patient Problems: Active and Suspected Problems Debility (Acute) Hyperlipemia (Acute) Date of Admission: 10/19/19 Date of Discharge: 11/02/19 - Primary Discharge Diagnosis Active and Suspected Problems Debility (Acute) Hyperlipemia (Acute) - Secondary Discharge Diagnosis Chronic Problems Hypertension (Chronic) Hospital Course and Treatment Imaging Results: 10/19/19 12:09 Diet: Cardiac/Low Cholesterol Food consistency:: Regular Liquid Consistency:: Regular/Thin Clinical Impression(s) from Imaging Studies Lumbar Spine X-Ray 10/24/19 18:07 IMPRESSION: Diffuse degenerative changes and depressed superior endplates are noted. Electronically Signed: Kwadwo Martin DO at 2:05 EST Tel [phone], Service support , Operations: None Procedures: None Summary of Care Provided: The patient is a 74 year old Male with below past medical history hospitalized for low back pain, will be admitted to TCU with debility, here for rehabilitation, strengthening, prior to being discharged home with . Discharge home with , outpatient PT/OT, Front wheeled walker. Patient Problems: Active and Suspected Problems Debility (Acute) Hyperlipemia (Acute) - Physical Exam Vitals/I&O's: Vital Signs Temp Pulse Resp BP Pulse Ox 98.3 F 60 16 138/72 H 95 10/29/19 15:06 10/30/19 05:47 10/29/19 15:06 10/30/19 05:47 10/29/19 15:06 Oxygen Delivery Method Room Air Weight: 98.968 kg Body Mass Index (BMI) 30.7 Intake and Output for Last 24 Hours 10/28/19 10/29/19 10/30/19 23:59 23:59 23:59 Intake Total 1080 / 1080 540 / 540 960 / 960 Balance 1080 / 1080 540 / 540 960 / 960 Current Medications Acetaminophen (Tylenol) 650 mg PO Q6 [facility] Last Admin: 10/30/19 16:52 Dose: 650 mg Documented by: Amlodipine Besylate (Norvasc) 5 mg PO DAILY [facility] Last Admin: 10/30/19 05:47 Dose: 5 mg Documented by: Aspirin (Ecotrin) 81 mg PO DAILY [facility] Last Admin: 10/30/19 05:47 Dose: 81 mg Documented by: Atorvastatin Calcium (Lipitor) 20 mg PO DAILY [facility] Last Admin: 10/30/19 05:47 Dose: 20 mg Documented by: Bisacodyl (Dulcolax) 10 mg PO DAILY PRN PRN Reason: Constipation Enoxaparin Sodium (Lovenox) 40 mg SC DAILY [facility] Last Admin: 10/30/19 05:47 Dose: 40 mg Documented by: Lidocaine (Lidoderm Patch) 1 patch TOPICAL DAILY@1000 ABNER; Protocol Last Admin: 10/30/19 08:47 Dose: Not Given Documented by: Methylprednisolone (Medrol Dosepak) 4 mg PO 0800,1200,1700 [facility]; Taper Stop: 11/03/19 08:59 Last Admin: 10/30/19 20:20 Dose: 8 mg Documented by: Metoprolol Succinate (Toprol Xl (Beta Alex)) 100 mg PO DAILY [facility] Last Admin: 10/30/19 05:47 Dose: 100 mg Documented by: Multivitamins/Minerals (Multivitamin With Minerals) 1 tablet PO DAILY@0800 [facility] Last Admin: 10/30/19 08:43 Dose: 1 tablet Documented by: Polyethylene Glycol (Miralax) 17 gm PO DAILY [facility] Last Admin: 10/30/19 05:48 Dose: 17 gm Documented by: Senna (Senokot) 1 tablet PO BID [facility] Last Admin: 10/30/19 16:52 Dose: 1 tablet Documented by: Tamsulosin HCl (Flomax) 0.4 mg PO DAILY@1730 [facility] Last Admin: 10/30/19 16:52 Dose: 0.4 mg Documented by: Discharge Diet: No Restrictions Discharge Activity: Return to Normal Activity, May Shower, Use Walker May resume sexual activity in: No Restrictions Weight Bearing Status: Weight bearing as tolerated Call your doctor if you observe: Fever of 101 or Higher, Inability to urinate, Inability to have a bowel movement, Shortness of breath, Chest pain, Uncontrolled pain Home Medications: Medications to take at Discharge Amlodipine [Norvasc] 5 mg PO DAILY 12/16/17 Atorvastatin Calcium 20 mg PO DAILY 12/16/17 Metoprolol Succinate [Toprol Xl] 100 mg PO DAILY 12/16/17 Aspirin [Aspir 81] 81 mg PO DAILY 10/13/19 Vit A/Vit C/Vit E/Zinc/Copper [Preservision Areds Softgel] 1 ea PO DAILY 10/13/19 Acetaminophen [Tylenol Tablet] 650 mg PO Q6H PRN PRN tab 10/19/19 Lidocaine [Lidoderm Patch] 1 patch TOPICAL DAILY@1000 #30 patch 10/30/19 Tamsulosin HCl [Flomax] 0.4 mg PO DAILY@1730 #30 cap 10/30/19 Following Prescrptions Were Given to Patient: Tamsulosin HCl [Flomax] 0.4 mg PO DAILY@1730 #30 cap Transmission Status: [id number] Lidocaine [Lidoderm Patch] 1 patch TOPICAL DAILY@1000 #30 patch Transmission Status: Pending to [facility]/pharmacy #[id number] Primary Care Physician: Maurizio Ace MD [Primary Care Provider] - Please follow up with your Primary Care Physician in: 1 week. Disposition: Home Minutes spent on discharge:: 30 Patient Condition:: Stable Medical Necessity - Tobacco Use Smoking Status: Former smoker Meaningful Use Info Meaningful Use Diagnoses (Choose all that apply): None applicable
[2019-10-31] MEDS: Acetaminophen 325 MG Tablet 650 MG PO ×3 (04:52→16:49)
[2019-10-31] MEDS: Senna Tablet 1 TABLET PO ×2 (04:52→16:49)
[2019-10-31 04:53] VITALS: BP 144/67; PULSE 69
[2019-10-31] MEDS: Metoprolol(XL)Succ 100 MG Tablet PO (04:53)
[2019-10-31] MEDS: Polyethylene Glycol 3350 17 GM PACKET PO (04:53)
[2019-10-31] MEDS: Aspirin E.C. 81 MG Tablet PO (04:53)
[2019-10-31] MEDS: Atorvastatin Calcium 20 MG Tablet PO (04:53)
[2019-10-31] MEDS: Enoxaparin 40 MG/0.4 ML Syringe SC (04:53)
[2019-10-31] MEDS: amLODIPine 5 MG Tablet PO (04:54)
[2019-10-31] MEDS: MethylPREDNISolone DosePak 4 MG BOX PO ×4 (07:54→21:25)
[2019-10-31] MEDS: Multivitamins,Ther W-Minerals Tablet 1 TABLET PO (07:54)
[2019-10-31 16:00] VITALS: BP 137/75; PULSE 74; RESP 20; TEMP 36.4; O2SAT 98
[2019-10-31] MEDS: Tamsulosin HCl 0.4 MG Capsule PO (16:49)
[2019-11-01] MEDS: Acetaminophen 325 MG Tablet 650 MG PO ×5 (00:19→23:31)
[2019-11-01] MEDS: Polyethylene Glycol 3350 17 GM PACKET PO (05:13)
[2019-11-01] MEDS: Enoxaparin 40 MG/0.4 ML Syringe SC (05:14)
[2019-11-01 05:15] VITALS: BP 122/72; PULSE 72
[2019-11-01] MEDS: amLODIPine 5 MG Tablet PO (05:15)
[2019-11-01] MEDS: Aspirin E.C. 81 MG Tablet PO (05:15)
[2019-11-01] MEDS: Metoprolol(XL)Succ 100 MG Tablet PO (05:15)
[2019-11-01] MEDS: Senna Tablet 1 TABLET PO ×2 (05:15→17:49)
[2019-11-01] MEDS: Atorvastatin Calcium 20 MG Tablet PO (05:15)
[2019-11-01] MEDS: Multivitamins,Ther W-Minerals Tablet 1 TABLET PO (07:53)
[2019-11-01] MEDS: MethylPREDNISolone DosePak 4 MG BOX PO ×3 (07:53→20:28)
--- NOTE | 2019-11-01 08:02 | MDS.RN ---
Information for the mds was obtained from review of the clinical record, interview of resident, staff, and direct observation of resident's care.
--- NOTE | 2019-11-01 10:47 | MDS.RN ---
Information for the mds was obtained from review of the clinical record, interview of resident, staff, and direct observation of resident's care.
[2019-11-01 16:00] VITALS: BP 121/62; PULSE 68; RESP 20; TEMP 536.8; TEMP 998.3; O2SAT 97
[2019-11-01] MEDS: Tamsulosin HCl 0.4 MG Capsule PO (17:49)
[2019-11-02 05:22] VITALS: BP 134/69; PULSE 63
[2019-11-02] MEDS: Enoxaparin 40 MG/0.4 ML Syringe SC (05:22)
[2019-11-02] MEDS: Metoprolol(XL)Succ 100 MG Tablet PO (05:22)
[2019-11-02] MEDS: Atorvastatin Calcium 20 MG Tablet PO (05:22)
[2019-11-02] MEDS: Acetaminophen 325 MG Tablet 650 MG PO (05:22)
[2019-11-02] MEDS: Senna Tablet 1 TABLET PO (05:22)
[2019-11-02] MEDS: Aspirin E.C. 81 MG Tablet PO (05:22)
[2019-11-02] MEDS: Polyethylene Glycol 3350 17 GM PACKET PO (05:23)
[2019-11-02] MEDS: amLODIPine 5 MG Tablet PO (05:23)
[2019-11-02] MEDS: MethylPREDNISolone DosePak 4 MG BOX PO (08:21)
[2019-11-02] MEDS: Lidocaine 5% Patch 1 PATCH TOPICAL (08:21)
[2019-11-02] MEDS: Multivitamins,Ther W-Minerals Tablet 1 TABLET PO (08:21)
[2019-11-02 08:25] VITALS: RESP 16
[2019-11-02 08:44] VITALS: BP 123/65; PULSE 74; RESP 18; TEMP 36.8; O2SAT 98
== END 2019-11-02 10:58 | disposition home or self-care (01) | DRG 552 ==
PROVIDERS: Nurse Practitioner Family; Admitting Provider Family Medicine Geriatric Medicine; Family Provider Family Medicine; PCP Family Medicine; Visit Provider Family Medicine Geriatric Medicine
DX: M54.5 Low back pain (principal); I10 Essential (primary) hypertension; N43.3 Hydrocele, unspecified; Z87.891 Personal history of nicotine dependence; N20.0 Calculus of kidney; E78.5 Hyperlipidemia, unspecified
CPT/HCPCS: 36415; 72114; 80048; 85025; 97032; 97110; 97116; 97162; 97166; 97530; 97535; 97802

== ENCOUNTER 2020-01-16 11:30 | Outpatient (RCR) | payer MEDICARE, SELFPAY ==
[2019-10-19 11:51] VITALS: BMI 30.7
--- NOTE | 2019-11-13 12:01 | HP.PTEVAL_ITS ---
Patient's Visit Information STEVE JUAN III is a 74 year old M referred to Physical Therapy by Miguel Talley MD with a diagnosis of DEBILITY,BACK PAIN. Date of Evaluation: 11/13/19 Physical Therapist: Mario Albert, PT, Cert MDT, OCS - Visit Plan Frequency: 2x /Week Duration: 4 Weeks Plan: PT INTERVENTIONS LE STRENGTHENING,LUMBAR ROM,DLS,postural ex's,modalties as need - Subjective Findings: This 74 y/o male presents to physical therapy with debility ,back pain. Patient developed lumbar pain which was severe back pain which patient was hospitalilzed had x-rays and transferred to 2 nd floor TCU for Rehab. Patient d/c to [facility]. Patient has no pain just stiffness . Patient had to start using FWW prior patient didnt to use FWW. Pain symmtrical lumbar . Denies parathesia/tingling. Coughing/sneezing-. Patient able to sleep at nighty. Patient aggravating factors worse with walking ,standing ,bending ,lifting.Alleviating factors heat. Payient pain affects QOL ,function adn ADL'S ,housework tasks. Patient pain affectS QOL and function. SOCIAL: . VOCATION: retired - Pain Bilateral Back Pain Intensity (Out of 10): 3 Pain Intensity Range: 10 - Objective POSTURE: foward posture tunk. GAIT: foward posture trunk reciprocal pattern. PALAPTION: tender L-S. NEURO: denies parathesia/tingling ,reflexes L3-4,L4-5,L5-S1 1/3. SYMMTRIES: align. MMT: 4/5 quads/hams/hip flexion 4- /5,ankle 4/5. LUMBAR ROM: flexion mod loss,extension severe with pain ,side glides min glides - Special Tests L/S Slump test left side: Negative L/S Slump test right side: Negative L/S Left Straight Leg Raise: Negative L/S Right Straight Leg Raise: Negative - Goals Goal 1:: Independant with HEP Goal Time Frame: 4-6 Weeks Goal 2:: Decrease posture for ADL'S Goal Time Frame: 4-6 Weeks Goal 3:: Patient decrease LBP by 50 % or > to improve function and QOL. Goal Time Frame: 4-6 Weeks Goal 4:: Patient to improve lumbar ROM for function of recovery Goal Time Frame: 4-6 Weeks Goal 5:: Patient increase strength BLE to good for function to ambulate with least restrictive device. Goal Time Frame: 4-6 Weeks Goal 6:: Patient improve back owestry score by 5 points or > to improve QOL. Goal Time Frame: 4-6 Weeks - Rehabilitation Potential Physical Therapy Diagnosis: This patient has lumbar pain severe with poor lumbar ROM,decrease strength ,difficulty with gait needs FWW ,impaits ADLS' and function Rehabilitation Potential: Good - Anticipated Interventions Patient/Client Instruction: Educate patient on: Condition, Plan of Care For the Purpose of:: To decrease pain, To decrease swelling/inflammation, To improve muscle performance and motor function, To improve ability to perform ADL's, To improve performance and independence with ADL's, To improve ability of physical actions for home/community/work/leisure, To improve health of tissue, To decrease soft tissue restriction, To increase flexibility/ROM, To improve ability to perform tasks related to life management Therapeutic Exercise to Include: Strength training, Body mechanics, Postural training, Flexibilty training, Active ROM, Dynamic Lumbar Stabilization For the Purpose of:: To decrease pain, To increase ROM, To improve muscle performance and motor function, To increase tolerance to activity/condition/position, To improve ability of physical actions for home/community/work/leisure, To improve health of tissue, To decrease soft tissue restriction, To increase flexibility/ROM, To improve safety with gait, To improve ability to perform tasks related to life management TENS: Yes IF ES: Yes Cryotherapy (ice pack, ice massage): Yes Thermo therapy (hot pack): Yes Ultrasound (thermal/non thermal): Yes For the Purpose of:: To decrease pain, To increase ROM, To improve nutrient delivery to tissue, To increase oxygenation perfusion, To improve health of tissue, To decrease soft tissue restriction, To increase flexibility/ROM Thank you for the opportunity to evaluate your patient. For Medicare and Medicare HMO plans, please review the plan of care and approve it. It will need to be FAXED BACK to us at [phone] for Medicare purposes. For Medicare only, by signing this I certify the plan of care. Please let me know if there are questions or concerns regarding this plan of care. Physician Signature: Date:
--- NOTE | 2019-12-19 11:56 | HP.PTREVAL ---
Miguel Talley MD, It has been my pleasure to treat STEVE JUAN III over the last 10 visits for DEBILITY,BACK PAIN. Please see the progress note below for an update on the physical therapy plan of care! Subjective: Patient received aproval to [facility] Objective/Function: POSTURE: mild foward posture. MMT: quads/hams 4/5,hip flexion 4-/5. GAIT: ambulates with QC 2 point gait. LUMBAR ROM: flexion min/mod loss,extension mod/severe. FAXABILITY: mod tight Plan Plan: cont with POC 2xwk for 4weeks DLS,POSTURAL EX'S LE STRENGTHENING,FUNCTIONAL STRENGTHNEING Goals Goal 1:: Independant with HEP Goal Time Frame: 4-6 Weeks Goal Progress: Goal Met Goal 2:: Decrease posture for ADL'S Goal Time Frame: 4-6 Weeks Goal Progress: Progressing Goal 3:: Patient decrease LBP by 70 % or > to improve function and QOL. Goal Time Frame: 4-6 Weeks Goal Progress: Progressing Goal 4:: Patient to improve lumbar ROM for function of recovery Goal Time Frame: 4-6 Weeks Goal 5:: Patient increase strength BLE to good for function to ambulate with least restrictive device. Goal Time Frame: 4-6 Weeks Goal Progress: Progressing Goal 6:: Patient improve back owestry score by 6-7 points or > to improve QOL. Goal Time Frame: 4-6 Weeks Goal Progress: Progressing Anticipated Interventions Patient/Client Instruction: Educate patient on: Condition, Plan of Care For the Purpose of:: To decrease pain, To decrease swelling/inflammation, To improve muscle performance and motor function, To improve ability to perform ADL's, To improve performance and independence with ADL's, To improve ability of physical actions for home/community/work/leisure, To improve health of tissue, To decrease soft tissue restriction, To increase flexibility/ROM, To improve ability to perform tasks related to life management Therapeutic Exercise to Include: Strength training, Body mechanics, Postural training, Flexibilty training, Active ROM, Dynamic Lumbar Stabilization For the Purpose of:: To decrease pain, To increase ROM, To improve muscle performance and motor function, To increase tolerance to activity/condition/position, To improve ability of physical actions for home/community/work/leisure, To improve health of tissue, To decrease soft tissue restriction, To increase flexibility/ROM, To improve safety with gait, To improve ability to perform tasks related to life management TENS: Yes IF ES: Yes Cryotherapy (ice pack, ice massage): Yes Thermo therapy (hot pack): Yes Ultrasound (thermal/non thermal): Yes For the Purpose of:: To decrease pain, To increase ROM, To improve nutrient delivery to tissue, To increase oxygenation perfusion, To improve health of tissue, To decrease soft tissue restriction, To increase flexibility/ROM Please do not hesitate to contact me at [phone] by phone or if you have questions or concerns regarding this new plan of care! Sincerely, Mario Albert, PT, Cert MDT, OCS
--- NOTE | 2020-01-16 12:08 | HP.PTDCSUM ---
HP - PT D/C Summary It has been my pleasure to treat STEVE JUAN III under orders from Miguel Talley MD, for the diagnosis of DEBILITY,BACK PAIN for a total of 18 visit(s). Discharge Date: 01/16/20 Please see the following information for a summary of their discharge status. - Subjective Subjective: Doing GOOD ..Return to function with ADL'S. Ambulating with with no device. - Pain Bilateral Back Pain Intensity (Out of 10): 0 - Overall Improvement % Improvement: 90 - Objective Objective/Function: POSTURE: mild /mod foward posture trunck. GAIT: reciprocal pattern foward reciprocal pattern no device. MMT:quads/hams/hip 4/5,ankle 4/5. LUMBAR ROM: flexion min loss,extension mod loss ,side glides min loss. FLEXBLITY: hams min loss - Goals Goal 1:: Independant with HEP Goal Progress: Goal Met Goal 2:: Decrease posture for ADL'S Goal Progress: Goal Met Goal 3:: Patient decrease LBP by 70 % or > to improve function and QOL. Goal Progress: Goal Met Goal 4:: Patient to improve lumbar ROM for function of recovery Goal Progress: Goal Met Goal 5:: Patient increase strength BLE to good for function to ambulate with least restrictive device. Goal Progress: Progressing Goal 6:: Patient improve back owestry score by 6-7 points or > to improve QOL. Goal Progress: Goal Met - Plan Plan: D/C TO [facility] - D/C Information Discharge Comments: [facility] AND [facility] If there are questions or concerns regarding this patient's physical therapy, please feel free to call me at [phone]. Thank you for the referral of this patient. Sincerely, Mario Albert, PT, Cert MDT, OCS
== END 2020-01-16 19:00 | disposition home or self-care (01) ==
LOC: PT 11:30
PROVIDERS: Family Provider Family Medicine; PCP Family Medicine; Referring Provider Family Medicine Geriatric Medicine; Visit Provider Family Medicine Geriatric Medicine
DX: M53.81 Other specified dorsopathies, occipito-atlanto-axial region (principal); M54.9 Dorsalgia, unspecified
CPT/HCPCS: 97110; 97162

== ENCOUNTER → 2020-04-22 10:50 | Outpatient (CLI) | payer MEDICARE, SELFPAY ==
[2019-10-19 11:51] VITALS: BMI 30.7
[2020-04-22 13:04] LABS: AST(SGOT) 20 U/L (15-37); Alanine Aminotransfer ALT/SGPT 44 U/L (16-61); Albumin, Serum 3.7 g/dL (3.2-5.0); Alkaline Phosphatase 89 U/L (45-117); Anion Gap 9 (5-15); BUN 15 mg/dL (7-18); BUN/Creat Ratio 14.7 RATIO (10-20); Calcium,Total 8.7 mg/dL (8.5-10.1); Chloride 104 mmol/L (98-107); Cholesterol 120 mg/dL (200); Creatinine, Serum 1.02 mg/dL (0.70-1.30); EST Glomerular Filtration Rate 76 mL/min (>60); Est Glom Filt Rate - Afr Amer 92 mL/min (>60); Globulin 3.8 g/dL (2.2-4.2); Glucose 104 mg/dL (74-106); High Density Lipoprotein 36 mg/dL; PSA,Total- Diagnostic 0.97 ng/mL (0.0-4.0); Potassium 4.1 mmol/L (3.5-5.1); Protein, Total 7.5 g/dL (6.4-8.2); Sodium Level 142 mmol/L (136-145); Triglycerides 139 mg/dL; Very Low Density Lipoprotein 28 mg/dL (5-40)
== END ==
PROVIDERS: PCP Family Medicine; Visit Provider Family Medicine
DX: I10 Essential (primary) hypertension (principal); N40.1 Benign prostatic hyperplasia with lower urinary tract symptoms
CPT/HCPCS: 36415; 80053; 80061; 84153

== ENCOUNTER 2021-01-29 12:01 | Outpatient (RCR) | payer MEDICARE, SELFPAY ==
[2019-10-19 11:51] VITALS: BMI 30.7
[2021-01-29] MEDS: COVID-19 VACC, MRNA(PFIZER)/PF 30 MCG/0.3 ML SYRINGE IM (10:47)
[2021-02-19] MEDS: COVID-19 VACC, MRNA(PFIZER)/PF 30 MCG/0.3 ML SYRINGE IM (10:16)
== END 2021-04-28 23:59 ==
LOC: IMMUN 12:01
PROVIDERS: PCP Family Medicine; Referring Provider Family Medicine; Visit Provider Family Medicine
DX: Z23 Encounter for immunization (principal)
CPT/HCPCS: 0001A; 0002A; 91300

== ENCOUNTER → 2021-04-27 11:09 | Outpatient (CLI) | payer MEDICARE, SELFPAY ==
[2019-10-19 11:51] VITALS: BMI 30.7
[2021-04-27 16:16] LABS: AST(SGOT) 22 U/L (15-37); Alanine Aminotransfer ALT/SGPT 49 U/L (16-61); Albumin, Serum 3.7 g/dL (3.2-5.0); Alkaline Phosphatase 81 U/L (45-117); Anion Gap 8 (5-15); BUN 13 mg/dL (7-18); BUN/Creat Ratio 13.3 RATIO (10-20); Calcium,Total 8.9 mg/dL (8.5-10.1); Chloride 104 mmol/L (98-107); Creatinine, Serum 0.98 mg/dL (0.70-1.30); EST Glomerular Filtration Rate 80 mL/min (>60); Est Glom Filt Rate - Afr Amer 97 mL/min (>60); Globulin 3.8 g/dL (2.2-4.2); Glucose 87 mg/dL (74-106); PSA,Total - Annual Screen 2.59 ng/mL (0.00-4.00); Protein, Total 7.5 g/dL (6.4-8.2); Sodium Level 139 mmol/L (136-145)
== END ==
PROVIDERS: PCP Family Medicine; Visit Provider Family Medicine
DX: E78.00 Pure hypercholesterolemia, unspecified (principal); Z12.5 Encounter for screening for malignant neoplasm of prostate
CPT/HCPCS: 36415; 80053; 84153; G0103

== ENCOUNTER 2021-11-16 19:16 | Emergency (ER) | payer MEDICARE, SELFPAY ==
[2021-11-16 19:18] VITALS: BP 154/81; PULSE 75; RESP 18; TEMP 36.6; O2SAT 98; BMI 33.4
--- NOTE | 2021-11-16 21:47 | EDS_ITS ---
HPI History of Present Illness Chief Complaint: Nosebleed Informant: patient and spouse/S.O. Onset/Context/Timing Onset: Today Current Severity: Gone Maximum Severity: Moderate Narrative Narrative: Patient presents with nosebleed from the left nare. Patient states they were unable to get the bleeding controlled at home. He did call squad and after using Afrin bleeding has subsided. He denies significant URI symptoms. No facial trauma. He is on baby aspirin and no other anticoagulants. [facility] Medical History High cholesterol HTN (hypertension) Home Medications amlodipine 5 mg PO DAILY 12/16/17 [History Last Taken 10/16/19] atorvastatin 20 mg PO DAILY 12/16/17 [History Last Taken 10/16/19] metoprolol succinate [Toprol XL] 100 mg PO DAILY 12/16/17 [History Last Taken 10/16/19] aspirin 81 mg PO DAILY 10/13/19 [History Last Taken 10/16/19] vitamins A,C,H-prcc-yycmok 1 ea PO DAILY 10/13/19 [History Last Taken 10/16/19] acetaminophen 650 mg PO Q6H PRN PRN tab 10/19/19 [Rx Last Taken Unknown] lidocaine 1 patch TOPICAL DAILY@1000 #30 patch 10/30/19 [Rx Last Taken Unknown] tamsulosin 0.4 mg PO DAILY@1730 #30 cap 10/30/19 [Rx Last Taken Unknown] Allergy/AdvReac Type Severity Reaction Status Date / Time Penicillins Allergy Hives Verified 11/16/21 19:21 Social History Smoking Status: Former smoker ROS ROS ED Constitutional Constitutional ED: Denies chills or fever(s) Eyes Eyes: Denies change in vision ENT ENT ED: Reports other Details: Nosebleed ; Denies sore throat Cardiovascular Cardiovascular: Denies chest pain Respiratory/Chest Respiratory/Chest: Denies cough or dyspnea Gastrointestinal Gastrointestinal: Denies abdominal pain, diarrhea, nausea or vomiting Neurologic Neurologic: Denies weakness Allergic/Immunologic Allergic/Immunologic ED: Denies urticaria EXAM Physical Exam Const Vital Signs: 11/16/21 19:18 Temperature 97.9 F Temperature Source Temporal Pulse Rate 75 Respiratory Rate 18 Blood Pressure 154/81 H Blood Pressure Mean 105 Pulse Ox 98 Oxygen Delivery Method Room Air Positive well nourished and well developed General Appearance ED: well developed HEENT Reports moist mucous membranes HEENT Narrative: Mild dried blood noted in the left nare. Right nare clear. Eyes PERRL and EOMs intact bilaterally Neck supple Chest Wall inspection of chest normal and palpation of chest normal Resp normal respiratory effort and clear to auscultation bilaterally Cardio regular rate and regular rhythm GI normal to inspection, nondistended, normoactive bowel sounds and non-tender Palpation: soft Extremity normal to inspection Neuro oriented x3 Skin no rashes or lesions noted MDM MDM MDM Narrative Medical decision making narrative: At this time bleeding has subsided. I did offer the patient sponge packing and he declines. He states he will hold pressure if bleeding starts again. He is given ENT follow-up as needed. Discharge Plan Triage Chief Complaint: Nosebleed ED Provider: Debo Bartlett Dx/Rx/DC Orders Clinical Impression: Epistaxis Instructions: ED Epistaxis (Adult) Prescriptions: No Action atorvastatin 20 MG tablet 20 mg PO DAILY RF: 0 metoprolol succinate [Toprol XL] 100 MG Tab.Er.24h 100 mg PO DAILY RF: 0 amlodipine 5 MG tablet 5 mg PO DAILY RF: 0 aspirin 81 MG tablet,delayed release (DR/EC) 81 mg PO DAILY RF: 0 vitamins A,C,F-jbde-dpncrf 1 EACH capsule 1 ea PO DAILY RF: 0 acetaminophen 325 MG tablet 650 mg PO Q6H PRN PRN (Reason: Pain Score 1-10/10) RF: 0 tamsulosin 0.4 MG capsule 0.4 mg PO DAILY@1730 Qty: 30 RF: 0 lidocaine 1 PATCH patch 1 patch topical DAILY@1000 Qty: 30 RF: 0 Primary Care Provider: Maurizio Ace Referrals: Maurizio Ace MD [Primary Care Provider] - Melvin Sifuentes MD [STAFF PHYSICIAN] - As Needed Disposition Disposition: Home, Self Care Discharge Date/Time: 11/16/21 21:56
== END 2021-11-16 21:56 | disposition home or self-care (01) ==
PROVIDERS: Emergency Provider Emergency Medicine; PCP Family Medicine
DX: R04.0 Epistaxis (principal); I10 Essential (primary) hypertension; E78.00 Pure hypercholesterolemia, unspecified; Z79.82 Long term (current) use of aspirin; Z79.899 Other long term (current) drug therapy; Z87.891 Personal history of nicotine dependence
CPT/HCPCS: 99284

== ENCOUNTER 2022-06-17 09:19 | Outpatient (CLI) | payer MEDICARE, SELFPAY ==
[2022-06-17 11:36] LABS: AST(SGOT) 19 U/L (15-37); Alanine Aminotransfer ALT/SGPT 39 U/L (16-61); Albumin, Serum 3.6 g/dL (3.2-5.0); Alkaline Phosphatase 70 U/L (45-117); Anion Gap 8 (5-15); BUN 11 mg/dL (7-18); BUN/Creat Ratio 12.2 RATIO (10-20); Chloride 105 mmol/L (98-107); Cholesterol 115 mg/dL (200); EST Glomerular Filtration Rate 87 mL/min (>60); Est Glom Filt Rate - Afr Amer 105 mL/min (>60); Globulin 3.7 g/dL (2.2-4.2); Glucose 110 mg/dL (74-106); High Density Lipoprotein 38 mg/dL; PSA,Total - Annual Screen 1.36 ng/mL (0.00-4.00); Potassium 3.4 mmol/L (3.5-5.1); Protein, Total 7.3 g/dL (6.4-8.2); Sodium Level 140 mmol/L (136-145); Triglycerides 118 mg/dL; Very Low Density Lipoprotein 24 mg/dL (5-40)
== END 2022-06-17 23:59 | disposition home or self-care (01) ==
LOC: MFPLAB 09:23
PROVIDERS: PCP Family Medicine; Referring Provider Family Medicine; Visit Provider Family Medicine
DX: E78.00 Pure hypercholesterolemia, unspecified (principal); N40.1 Benign prostatic hyperplasia with lower urinary tract symptoms; Z12.5 Encounter for screening for malignant neoplasm of prostate
CPT/HCPCS: 36415; 80053; 80061; 84153; G0103

== ENCOUNTER → 2023-06-20 | Outpatient (CLI) | payer BC, SELFPAY ==
[2023-06-20 10:39] LABS: Erythrocyte Sedimentation Rate 7 mm/hr (0-20)
[2023-06-20 10:43] LABS: Absolute Lymphocyte Count 1.23 X10^3/uL (0.83-4.51); Absolute Neutrophil Count 8.8 X10^3/uL (2.0-7.7); Basophil# 0.04 X10^3/uL; Basophil% 0.4 % (0-1); Eosinophil# 0.09 X10^3/uL; Eosinophils% 0.8 % (0-5); Hematocrit 45.4 % (40-54); Hemoglobin 14.4 g/dL (13.0-16.5); Lymphocyte # 1.23 X10^3/ul (0.83-4.51); Lymphocyte % 11.3 % (19-41); Mean Corp Hgb Conc 31.7 g/dL (32-36); Mean Corpuscular Hgb 30.3 pg (27.0-32.0); Mean Corpuscular Volume 95.4 fL (80-94); Mean Platelet Vol. 9.8 fl (6.2-12.0); Monocyte# 0.68 X10^3/uL; Monocyte% 6.2 % (0-10); NRBC Flagged by Analyzer 0 % (0-5); Neutrophil # 8.81 X10^3/uL (2.7-7.7); Neutrophil % 80.8 % (47-70); Platelet Count 256 K/mm3 (150-450); RBC Distribution Width SD 45.6 fl (35.1-43.9); Red Blood Count 4.76 M/mm3 (4.6-6.2); White Blood Count 10.9 K/mm3 (4.4-11.0)
[2023-06-20 11:19] LABS: ALB/GLOB Ratio 0.9 RATIO (0.9-2.4); AST(SGOT) 20 U/L (15-37); Alanine Aminotransfer ALT/SGPT 36 U/L (16-61); Albumin, Serum 3.4 g/dL (3.2-5.0); Alkaline Phosphatase 80 U/L (45-117); Anion Gap 2 (5-15); BUN 12 mg/dL (7-18); BUN/Creat Ratio 12.4 RATIO (10-20); Calcium,Total 8.7 mg/dL (8.5-10.1); Chloride 108 mmol/L (98-107); Creatinine, Serum 0.97 mg/dL (0.70-1.30); EST Glomerular Filtration Rate 80 mL/min (>60); Est Glom Filt Rate - Afr Amer 97 mL/min (>60); Globulin 3.8 g/dL (2.2-4.2); Glucose 98 mg/dL (74-106); PSA,Total- Diagnostic 1.73 ng/mL (0.0-4.0); Potassium 3.8 mmol/L (3.5-5.1); Prealbumin 20.7 mg/dL (20.0-40.0); Protein, Total 7.2 g/dL (6.4-8.2); Sodium Level 141 mmol/L (136-145); Thyroid Stim Hormone (TSH) 2.33 uIU/mL (0.358-3.74)
== END | disposition home or self-care (01) ==
LOC: MFPLAB 09:26
PROVIDERS: PCP Family Medicine; Visit Provider Family Medicine
DX: Z00.00 Encounter for general adult medical examination without abnormal findings (principal); R63.4 Abnormal weight loss; N40.1 Benign prostatic hyperplasia with lower urinary tract symptoms; I10 Essential (primary) hypertension
CPT/HCPCS: 36415; 80053; 84134; 84153; 84443; 85025; 85652

== ENCOUNTER → 2023-06-28 | Outpatient (CLI) | payer BC, SELFPAY ==
[2023-06-28 13:09] LABS: Microalbumin,Random Urine 12.6 mg/L (NO RANGE EST.)
== END | disposition home or self-care (01) ==
LOC: LAB.FUTURE 11:24
PROVIDERS: PCP Family Medicine; Visit Provider Family Medicine
DX: Z00.00 Encounter for general adult medical examination without abnormal findings (principal); R63.4 Abnormal weight loss; N40.1 Benign prostatic hyperplasia with lower urinary tract symptoms; I10 Essential (primary) hypertension; N13.8 Other obstructive and reflux uropathy
CPT/HCPCS: 82043

== ENCOUNTER → 2025-03-07 | Outpatient (CLI) | payer BC, SELFPAY ==
--- NOTE | 2025-03-07 15:35 | RAD_ITS ---
PROCEDURE: CHEST PA AND LATERAL 03/07/2025 REASON FOR EXAM: COUGH TECHNIQUE: Frontal and lateral views of the chest. COMPARISON: None FINDINGS: Hardware: None Heart: The heart size is normal. Mediastinum: The mediastinal contour is unremarkable. Lungs: Hyperinflated lungs with scattered areas of atelectasis/scarring, particularly within the right lung base. Small right lower lung calcified granuloma. No pneumothorax. Bones: Old fracture deformity of the right 4th rib. RAD/Chest PA and Lateral IMPRESSION: Hyperinflated lungs with scattered areas of atelectasis/scarring. [facility]
[2025-03-07 17:57] LABS: Hematocrit 42.8 % (40-54); Hemoglobin 14.4 g/dL (13.0-16.5); Mean Corp Hgb Conc 33.6 g/dL (32-36); Mean Corpuscular Hgb 30.4 pg (27.0-32.0); Mean Corpuscular Volume 90.5 fL (80-94); Mean Platelet Vol. 10.2 fl (6.2-12.0); Platelet Count 286 K/mm3 (150-450); RBC Distribution Width CV 13.1 % (11.6-14.6); Red Blood Count 4.73 M/mm3 (4.6-6.2); White Blood Count 7.9 K/mm3 (4.4-11.0)
[2025-03-07 18:48] LABS: ALB/GLOB Ratio 1.3 RATIO (0.9-2.4); AST(SGOT) 19 U/L (<=37); Alanine Aminotransfer ALT/SGPT 18 U/L (<=46); Albumin, Serum 4.1 g/dL (3.4-4.8); Alkaline Phosphatase 93 U/L (40-129); Anion Gap 11 (5-15); BUN 10 mg/dL (4-19); BUN/Creat Ratio 11.2 RATIO (10-20); Calcium,Total 9.2 mg/dL (7.6-11.0); Carbon Dioxide 26.5 mmol/L (21.0-32.0); Chloride 103 mmol/L (98-108); Creatinine, Serum 0.92 mg/dL (0.70-1.20); EST Glomerular Filtration Rate 86 (>60); Globulin 3.2 g/dL (2.2-4.2); Glucose 98 mg/dL (70-99); Magnesium 2.4 mg/dL (1.5-2.2); Potassium 4.4 mmol/L (3.3-5.1); Protein, Total 7.4 g/dL (5.9-8.4); Sodium Level 140 mmol/L (133-145); Total Bilirubin 0.76 mg/dL (0.00-1.30); Vitamin B12 285 pg/mL (180-914); Vitamin D,25 Hydroxy 13.6 ng/mL (30-100)
== END | disposition home or self-care (01) ==
LOC: MTLAB 15:29
PROVIDERS: PCP Family Medicine; Referring Provider Family Medicine; Visit Provider Family Medicine
DX: R05.9 Cough, unspecified (principal); I48.91 Unspecified atrial fibrillation; R53.83 Other fatigue
CPT/HCPCS: 36415; 71046; 80053; 82306; 82607; 83735; 84443; 85027

== ENCOUNTER 2025-09-05 15:22 | Outpatient (CLI) | payer MEDICARE, SELFPAY ==
[2025-09-05 18:45] LABS: Cholesterol 113 mg/dL (<=200); Low Density Lipoprotein Calc. 52 mg/dL; Triglycerides 73 mg/dL; Very Low Density Lipoprotein 15 mg/dL (5-40); Vitamin B12 642 pg/mL (180-914); Vitamin D,25 Hydroxy 43.5 ng/mL (30-100); cholesterol:hdl ratio screen 2.41
== END 2025-09-05 23:59 | disposition home or self-care (01) ==
LOC: MFPLAB 15:22
PROVIDERS: PCP Family Medicine; Visit Provider Family Medicine
DX: E78.00 Pure hypercholesterolemia, unspecified (principal); E55.9 Vitamin D deficiency, unspecified
CPT/HCPCS: 36415; 80061; 82306; 82607